=== PATIENT | female | born 1940 | race Caucasian/White ===

== ENCOUNTER 2017-08-11 10:25 | Emergency (ER) | payer MEDICARE ==
[~2017-08-11] VITALS: Ht 175.3 cm; Wt 54.9 kg
[~2017-08-11 10:25] MED LIST: ASPI-586 PO; CALC600T12 PO; GLUC1CAP37 PO; MULT1TAB69 PO; PANT40TA2 PO
--- OUTSIDE RECORDS SUMMARY | 2017-08-11 10:31 | XMS REPORT | Continuity of Care Document ---
Author Author [facility] Organization [facility] Address Unknown Phone Unavailable Allergies Active Description Code Type Severity Reaction Onset Reported/Identified Relationship to Patient Clinical Status Yes SULFA SULFA Unknown N/A 05/21/2011 Yes Sulfa (Sulfonamide Antibiotics) [id number] Drug Allergy Unknown RASH 2015 Medications There is no data. Problems Date Dx Coded Attending Type Code Diagnosis Diagnosed By 06/16/2014 AMBROCIO SALAZAR Ot V76.12 03/31/2015 STACEY MULLINS MD Ot 272.4 03/31/2015 STACEY MULLINS MD Ot 401.9 03/31/2015 STACEY MULLINS MD Ot 714.0 03/31/2015 STACEY MULLINS MD Ot 780.2 04/11/2015 STACEY MULLINS MD Ot 272.4 04/11/2015 STACEY MULLINS MD Ot 401.9 04/11/2015 STACEY MULLINS MD Ot 714.0 04/11/2015 STACEY MULLINS MD Ot 780.2 05/15/2015 STACEY MULLINS MD Ot 272.4 05/15/2015 STACEY MULLINS MD Ot 401.9 05/15/2015 STACEY MULLINS MD Ot 714.0 05/15/2015 STACEY MULLINS MD Ot 780.2 03/12/2016 ROSI REY MD Ot D64.9 ANEMIA, UNSPECIFIED 03/12/2016 ROSI REY MD Ot Z01.818 ENCOUNTER FOR OTHER PREPROCEDURAL EXAMIN 03/12/2016 ROSI REY MD Ot Z12.11 ENCOUNTER FOR SCREENING FOR MALIGNANT NE 03/12/2016 ROSI REY MD Ot Z86.010 PERSONAL HISTORY OF COLONIC POLYPS 03/15/2016 ROSI REY MD Ot D64.9 ANEMIA, UNSPECIFIED 03/15/2016 KIDO MD, TAKAAKI Ot K21.0 GASTRO-ESOPHAGEAL REFLUX DISEASE WITH ES 03/15/2016 ROSI REY MD Ot K29.70 GASTRITIS, UNSPECIFIED, WITHOUT BLEEDING 03/15/2016 ROSI REY MD Ot K44.9 DIAPHRAGMATIC HERNIA WITHOUT OBSTRUCTION 03/15/2016 ROSI REY MD Ot K64.1 SECOND DEGREE HEMORRHOIDS 03/15/2016 VIANEY REY MDKI Ot R19.5 OTHER FECAL ABNORMALITIES 03/15/2016 ROSI REY MD Ot Z86.010 PERSONAL HISTORY OF COLONIC POLYPS 03/18/2016 ROSI REY MD Ot D64.9 ANEMIA, UNSPECIFIED 03/18/2016 ROSI REY MD Ot K21.0 GASTRO-ESOPHAGEAL REFLUX DISEASE WITH ES 03/18/2016 ROSI REY MD Ot K29.70 GASTRITIS, UNSPECIFIED, WITHOUT BLEEDING 03/18/2016 ROSI REY MD Ot K44.9 DIAPHRAGMATIC HERNIA WITHOUT OBSTRUCTION 03/18/2016 ROSI REY MD Ot K64.1 SECOND DEGREE HEMORRHOIDS 03/18/2016 ROSI REY MD Ot R19.5 OTHER FECAL ABNORMALITIES 03/18/2016 VIANEY REY MDKI Ot Z86.010 PERSONAL HISTORY OF COLONIC POLYPS 03/18/2016 ROSI REY MD Ot D64.9 ANEMIA, UNSPECIFIED 03/18/2016 ROSI REY MD Ot K21.0 GASTRO-ESOPHAGEAL REFLUX DISEASE WITH ES 03/18/2016 ROSI REY MD Ot K29.70 GASTRITIS, UNSPECIFIED, WITHOUT BLEEDING 03/18/2016 ROSI REY MD Ot K44.9 DIAPHRAGMATIC HERNIA WITHOUT OBSTRUCTION 03/18/2016 ROSI REY MD Ot K64.1 SECOND DEGREE HEMORRHOIDS 03/18/2016 VIANEY REY MDKI Ot R19.5 OTHER FECAL ABNORMALITIES 03/18/2016 VIANEY REY MDKI Ot Z86.010 PERSONAL HISTORY OF COLONIC POLYPS 03/19/2016 ROSI REY MD Ot D64.9 ANEMIA, UNSPECIFIED 03/19/2016 ROSI REY MD Ot K21.0 GASTRO-ESOPHAGEAL REFLUX DISEASE WITH ES 03/19/2016 ROSI REY MD Ot K29.70 GASTRITIS, UNSPECIFIED, WITHOUT BLEEDING 03/19/2016 ROSI REY MD Ot K44.9 DIAPHRAGMATIC HERNIA WITHOUT OBSTRUCTION 03/19/2016 ROSI REY MD Ot K64.1 SECOND DEGREE HEMORRHOIDS 03/19/2016 ROSI REY MD Ot R19.5 OTHER FECAL ABNORMALITIES 03/19/2016 ROSI REY MD Ot Z86.010 PERSONAL HISTORY OF COLONIC POLYPS 03/22/2016 ROSI REY MD Ot D64.9 ANEMIA, UNSPECIFIED 03/22/2016 ROSI REY MD Ot K21.0 GASTRO-ESOPHAGEAL REFLUX DISEASE WITH ES 03/22/2016 ROSI REY MD Ot K29.70 GASTRITIS, UNSPECIFIED, WITHOUT BLEEDING 03/22/2016 ROSI REY MD Ot K44.9 DIAPHRAGMATIC HERNIA WITHOUT OBSTRUCTION 03/22/2016 ROSI REY MD Ot K64.1 SECOND DEGREE HEMORRHOIDS 03/22/2016 ROSI REY MD Ot R19.5 OTHER FECAL ABNORMALITIES 03/22/2016 ROSI REY MD Ot Z86.010 PERSONAL HISTORY OF COLONIC POLYPS Procedures There is no data. Results There is no data. Encounters ACCT No. Visit Date/Time Discharge Status Pt. Type Provider Facility Loc./Unit Complaint [id number] 03/15/2016 09:34:00 03/15/2016 12:35:00 DIS Outpatient ROSI REY MD [facility] HX POLPYS [id number] 03/11/2016 05:50:00 03/11/2016 12:32:00 DIS Outpatient ROSI REY MD [facility] PREOP [id number] 04/24/2015 08:34:00 04/24/2015 23:59:59 CLS Outpatient STACEY MULLINS MD [facility] CARD [id number] 03/28/2015 14:08:00 03/28/2015 23:59:59 CLS Outpatient STACEY MULLINS MD [facility] CARD [id number] 06/02/2014 10:23:00 06/02/2014 23:59:59 CLS Outpatient AMBROCIO SALAZAR [facility] RAD [id number] 02/10/2013 12:20:00 02/10/2013 23:59:59 CLS Outpatient
[2017-08-11] MEDS ORDERED: NS IV 500 ML 500 ML IV SCH (10:45)
--- NOTE | 2017-08-11 10:47 | ED Syncope ---
General Chief Complaint: Dizziness/Syncope Stated Complaint: SYNCOPE Source of Information: Patient Exam Limitations: No Limitations History of Present Illness Time Seen by Provider: 10:45 Initial Comments Patient is a resident of [facility] due to dementia. This morning after getting out of the shower she felt dizzy. She went and sat in her chair and briefly lost consciousness. Caregiver did a precordial thump and the patient awakened shortly thereafter. She is back to normal now states she feels fine. She denies currently or any past history of chest pain, palpitations or shortness of breath. Timing/Prior Episodes: No Prior History Symptoms Prior to Episode: None Allergies and Home Medications Allergies Coded Allergies: Sulfa (Sulfonamide Antibiotics) (Verified Allergy, Unknown, RASH, 03/11/16) Home Medications Aspirin 81 Mg Tablet.dr, 81 MG PO DAILY, (Reported) Calcium Carbonate 600 Mg Tablet, 600 MG PO DAILY, (Reported) Glucosa Vora 2Kcl/Chondroitin Vora 1 Each Capsule, 1 EACH PO DAILY, (Reported) Multivitamin 1 Each Tablet, 1 EACH PO DAILY, (Reported) Pantoprazole Sodium 40 Mg Tablet.dr, 40 MG PO DAILY, #90 Prescribed by: ROSI REY on 03/15/16 1153 Constitutional: see HPI EENTM: see HPI Respiratory: no symptoms reported Cardiovascular: no symptoms reported Genitourinary: no symptoms reported Musculoskeletal: no symptoms reported Skin: no symptoms reported Psychiatric/Neurological: No Symptoms Reported Physical Exam Vital Signs Vital Sign - Last 12Hours 08/11/17 10:25 Temp 97.9 Pulse 65 Resp 18 B/P (MAP) 100/77 (85) Capillary Refill : General Appearance: No Apparent Distress, WD/WN HEENT: PERRL/EOMI, TMs Normal Neck: Full Range of Motion, Normal Inspection Respiratory: Normal Breath Sounds, No Accessory Muscle Use, No Respiratory Distress Gastrointestinal: Non Tender, Soft Extremities: Normal Capillary Refill, Normal Inspection Neurologic/Psychiatric: Alert, No Motor/Sensory Deficits, Other (she is alert but states that she feels fine aside from just being tired. She is disoriented to time but oriented to place) Cranial Nerves: Normal Hearing, Normal Speech, PERRL Motor/Sensory: No Motor Deficit, No Sensory Deficit Skin: Normal Color, Warm/Dry Progress/Results/Core Measures Results/Orders Lab Results Laboratory Tests Test 08/11/17 10:42 08/11/17 12:55 Range/Units White Blood Count 4.9 4.3-11.0 10^3/uL Red Blood Count 3.63 L 4.35-5.85 10^6/uL Hemoglobin 11.2 L 11.5-16.0 G/DL Hematocrit 36 35-52 % Mean Corpuscular Volume 99 80-99 FL Mean Corpuscular Hemoglobin 31 25-34 PG Mean Corpuscular Hemoglobin Concent 31 L 32-36 G/DL Red Cell Distribution Width 14.7 H 10.0-14.5 % Platelet Count 193 130-400 10^3/uL Mean Platelet Volume 11.4 H 7.4-10.4 FL Neutrophils (%) (Auto) 57 42-75 % Lymphocytes (%) (Auto) 32 12-44 % Monocytes (%) (Auto) 9 0-12 % Eosinophils (%) (Auto) 1 0-10 % Basophils (%) (Auto) 0 0-10 % Neutrophils # (Auto) 2.8 1.8-7.8 X 10^3 Lymphocytes # (Auto) 1.6 1.0-4.0 X 10^3 Monocytes # (Auto) 0.5 0.0-1.0 X 10^3 Eosinophils # (Auto) 0.1 0.0-0.3 10^3/uL Basophils # (Auto) 0.0 0.0-0.1 10^3/uL Sodium Level 141 135-145 MMOL/L Potassium Level 3.5 L 3.6-5.0 MMOL/L Chloride Level 104 98-107 MMOL/L Carbon Dioxide Level 27 21-32 MMOL/L Anion Gap 10 5-14 MMOL/L Blood Urea Nitrogen 19 H 7-18 MG/DL Creatinine 1.13 0.60-1.30 MG/DL Estimat Glomerular Filtration Rate 47 BUN/Creatinine Ratio 17 Glucose Level 137 H 70-105 MG/DL Calcium Level 9.4 8.5-10.1 MG/DL Total Bilirubin 0.5 0.1-1.0 MG/DL Aspartate Amino Transf (AST/SGOT) 26 5-34 U/L Alanine Aminotransferase (ALT/SGPT) 16 0-55 U/L Alkaline Phosphatase 71 40-136 U/L Total Protein 7.2 6.4-8.2 GM/DL Albumin 3.9 3.2-4.5 GM/DL Urine Color YELLOW Urine Clarity SLIGHTLY CLOUDY Urine pH 7 5-9 Urine Specific [place] 1.010 L 1.016-1.022 Urine Protein 2+ H NEGATIVE Urine Glucose (UA) NEGATIVE NEGATIVE Urine Ketones NEGATIVE NEGATIVE Urine Nitrite NEGATIVE NEGATIVE Urine Bilirubin NEGATIVE NEGATIVE Urine Urobilinogen NORMAL NORMAL MG/DL Urine Leukocyte Esterase 3+ H NEGATIVE Urine RBC (Auto) 2+ H NEGATIVE Urine RBC 0-2 /HPF Urine WBC 50-100 H /HPF Urine Squamous Epithelial Cells 0-2 /HPF Urine Crystals NONE /LPF Urine Bacteria FEW H /HPF Urine Casts PRESENT /LPF Urine Hyaline Casts 25-50 H /LPF Urine Mucus MODERATE H /LPF Urine Culture Indicated YES My Orders Orders - KRISTIE GOEL APRN Cbc With Automated Diff (08/11/17 10:42) Comprehensive Metabolic Panel (08/11/17 10:42) Ua Culture If Indicated (08/11/17 10:42) Chest 1 View, Ap/Pa Only (08/11/17 10:42) Ekg Tracing (08/11/17 10:42) Ns Iv 500 Ml (Sodium Chloride 0.9%) (08/11/17 10:45) General/Regular (08/11/17 Lunch) Urine Culture (08/11/17 12:55) Vital Signs/I&O Vital Sign - Last 12Hours 08/11/17 10:25 Temp 97.9 Pulse 65 Resp 18 B/P (MAP) 100/77 (85) Departure Impression Impression: Primary Impression: Syncope Additional Impression: Urinary tract infection Disposition: 01 HOME, SELF-CARE Condition: Stable Departure-Patient Inst. Decision time for Depature: 13:26 Referrals: SHEELA KOO MD (PCP/Family) Primary Care Physician Patient Instructions: Syncope (Fainting) (DC), Urinary Tract Infection, Adult ( DC) Add. Discharge Instructions: 1. Antibiotics as directed 2. Follow-up with her doctor this week for recheck All discharge instructions reviewed with patient and/or family. Voiced understanding. Scripts Cefuroxime Axetil (Cefuroxime) 250 Mg Tablet 250 MG PO BID, #10 TAB Prov: KRISTIE GOEL APRN 08/11/17 KRISTIE GOEL APRN Aug 11, 2017 10:47
[2017-08-11 10:54] LABS: HEMATOCRIT 36 % (35-52); HEMOGLOBIN 11.2 G/DL (11.5-16.0); MEAN CORPUSCULAR HEMOGLOBIN 31 PG (25-34); MEAN CORPUSCULAR HGB CONC 31 G/DL (32-36); MEAN CORPUSCULAR VOLUME 99 FL (80-99); RED BLOOD COUNT 3.63 10^6/uL (4.35-5.85); RED CELL DISTRIBUTION WIDTH 14.7 % (10.0-14.5); WHITE BLOOD COUNT 4.9 10^3/uL (4.3-11.0)
[2017-08-11 10:55] LABS: BASOPHILS % (AUTO) 0 % (0-10); EOSINOPHILS # (AUTO) 0.1 10^3/uL (0.0-0.3); EOSINOPHILS % (AUTO) 1 % (0-10); LYMPHOCYTES # (AUTO) 1.6 X 10^3 (1.0-4.0); LYMPHOCYTES % (AUTO) 32 % (12-44); MEAN PLATELET VOLUME 11.4 FL (7.4-10.4); MONOCYTES # (AUTO) 0.5 X 10^3 (0.0-1.0); MONOCYTES % (AUTO) 9 % (0-12); NEUTROPHILS # (AUTO) 2.8 X 10^3 (1.8-7.8); NEUTROPHILS % (AUTO) 57 % (42-75); PLATELET COUNT 193 10^3/uL (130-400)
[2017-08-11 11:10] LABS: ALBUMIN 3.9 GM/DL (3.2-4.5); BILIRUBIN,TOTAL 0.5 MG/DL (0.1-1.0); CALCIUM 9.4 MG/DL (8.5-10.1); CREATININE SERUM 1.13 MG/DL (0.60-1.30); POTASSIUM 3.5 MMOL/L (3.6-5.0); TOTAL PROTEIN 7.2 GM/DL (6.4-8.2)
--- NOTE | 2017-08-11 11:37 | Diagnostic Imaging Report ---
INDICATION: Syncope and dizziness. FINDINGS: The heart size, mediastinal configuration, and pulmonary vascularity are within normal limits. There is no pleural effusion, pneumothorax, or pneumonia. The osseous structures are unremarkable. IMPRESSION: No acute cardiopulmonary abnormality. Dictated by: Dictated on workstation # [id number]
[2017-08-11 13:05] LABS: BILIRUBIN,URINE NEGATIVE (NEGATIVE); CLARITY,URINE SLIGHTLY CLOUDY; COLOR,URINE YELLOW; GLUCOSE, URINE (UA) NEGATIVE (NEGATIVE); KETONES,URINE NEGATIVE (NEGATIVE); LEUKOCYTE ESTERASE ,URINE 3+ (NEGATIVE); NITRITE,URINE NEGATIVE (NEGATIVE); PH,URINE 7 (5-9); PROTEIN,URINE 2+ (NEGATIVE); UROBILINOGEN,URINE NORMAL (NORMAL)
[2017-08-11 13:20] LABS: BACTERIA,URINE FEW /HPF; HYALINE CASTS, URINE 25-50 /LPF; RBC,URINE 0-2 /HPF; SQUAMOUS EPITHELIAL CELL,UR 0-2 /HPF; WBC,URINE 50-100 /HPF
[2017-08-11] MEDS ORDERED: CEFU250T80 PO (13:27)
[2017-08-11] MEDS ORDERED: CEFDINIR 300 MG (OMNICEF) CAP PO ONE (13:30)
[2017-08-11 13:45] VITALS: BP 115/56
== END 2017-08-11 14:02 | disposition home or self-care (01) ==
LOC: EDUNIT# 10:25 → ER 10:26
DX: N39.0 Urinary tract infection, site not specified (principal); R55 Syncope and collapse; Z79.82 Long term (current) use of aspirin
CPT/HCPCS: 36415; 71045; 80053; 81000; 85025; 87088; 93005; 96360

== ENCOUNTER 2019-07-27 08:03 | Emergency (ER) | payer MEDICARE ==
[~2019-07-27] VITALS: Ht 175.2 cm; Wt 75.0 kg
[~2019-07-27 08:03] MED LIST changes: +CEFU250T80 PO
[2019-07-27] MEDS ORDERED: NS IV 1000 ML 1,000 ML IV ONE (08:11)
[2019-07-27 08:26] LABS: BASOPHILS % (AUTO) 0 % (0-10); EOSINOPHILS # (AUTO) 0.1 10^3/uL (0.0-0.3); EOSINOPHILS % (AUTO) 1 % (0-10); HEMATOCRIT 35 % (35-52); HEMOGLOBIN 11.3 G/DL (11.5-16.0); LYMPHOCYTES # (AUTO) 1.1 X 10^3 (1.0-4.0); LYMPHOCYTES % (AUTO) 19 % (12-44); MEAN CORPUSCULAR HEMOGLOBIN 30 PG (25-34); MEAN CORPUSCULAR HGB CONC 32 G/DL (32-36); MEAN CORPUSCULAR VOLUME 94 FL (80-99); MEAN PLATELET VOLUME 10.9 FL (7.4-10.4); MONOCYTES # (AUTO) 0.5 X 10^3 (0.0-1.0); MONOCYTES % (AUTO) 8 % (0-12); NEUTROPHILS % (AUTO) 71 % (42-75); PLATELET COUNT 219 10^3/uL (130-400); RED CELL DISTRIBUTION WIDTH 14.7 % (10.0-14.5); WHITE BLOOD COUNT 5.6 10^3/uL (4.3-11.0)
[2019-07-27 08:31] LABS: BILIRUBIN,URINE NEGATIVE (NEGATIVE); CLARITY,URINE CLEAR; COLOR,URINE YELLOW; GLUCOSE, URINE (UA) NEGATIVE (NEGATIVE); KETONES,URINE NEGATIVE (NEGATIVE); LEUKOCYTE ESTERASE ,URINE NEGATIVE (NEGATIVE); NITRITE,URINE NEGATIVE (NEGATIVE); PH,URINE 7.5 (5-9); PROTEIN,URINE NEGATIVE (NEGATIVE)
[2019-07-27 08:42] LABS: BACTERIA,URINE NEGATIVE /HPF; RBC,URINE 0-2 /HPF
[2019-07-27 08:47] LABS: ALBUMIN 3.9 GM/DL (3.2-4.5); BILIRUBIN,TOTAL 0.4 MG/DL (0.1-1.0); CALCIUM 9.2 MG/DL (8.5-10.1); CREATININE SERUM 0.93 MG/DL (0.60-1.30); MAGNESIUM 2.1 MG/DL (1.6-2.4); POTASSIUM 3.8 MMOL/L (3.6-5.0); TOTAL PROTEIN 7.2 GM/DL (6.4-8.2)
--- NOTE | 2019-07-27 09:19 | NUR ---
TO ROOM FLUIDS CON'T TO INFUSE.
[2019-07-27 09:20] VITALS: BP 130/68
--- NOTE | 2019-07-27 09:37 | ED Fall/Injury ---
General Chief Complaint: Dizziness/Syncope Stated Complaint: FALL Nursing Triage Note: TO ED PER EMS FROM [facility]. WAS FOUND ON FLOOR SYSTOLIC B/P WAS IN THE 90'S ON ADMIT NO C/O Source: patient, EMS, [facility] records, caregiver Exam Limitations: no limitations History of Present Illness Date Seen by Provider: Jul 27, 2019 Time Seen by Provider: 08:00 Initial Comments This pleasant 79-year-old woman with dementia is a resident of [facility] and presents to the emergency room via EMS after being found on the floor. Staff state they've heard her yelling "help" and then found her lying flat on her back in the hallway. She is normally independently ambulatory. Staff report that she felt clammy on her arms and hands. She was pale in appearance and seemed to be nauseated or gagging. Blood pressure was 99/59 at the time. They also reported a pulse ox of 78 percent on room air. Oxygen saturation was in the 90s for EMS on room air. There was no loss of consciousness. Neither staff nor patient report any injury or pain. No injury is evident on exam. Patient has been exhibiting some more unusual behaviors recently. Urinalysis a couple of weeks ago was reportedly unremarkable. Allergies and Home Medications Allergies Coded Allergies: Sulfa (Sulfonamide Antibiotics) (Verified Allergy, Unknown, RASH, 03/11/16) Home Medications Aspirin 81 Mg Tablet., 81 MG PO DAILY, (Reported) Calcium Carbonate 600 Mg Tablet, 600 MG PO DAILY, (Reported) Cefuroxime Axetil 250 Mg Tablet, 250 MG PO BID Prescribed by: KRISTIE GOEL on 08/11/17 1327 Glucosa Vora 2Kcl/Chondroitin Vora 1 Each Capsule, 1 EACH PO DAILY, (Reported) Multivitamin 1 Each Tablet, 1 EACH PO DAILY, (Reported) Pantoprazole Sodium 40 Mg Tablet., 40 MG PO DAILY Prescribed by: ROSI REY on 03/15/16 1153 Patient Home Medication List Home Medication List Reviewed: Yes Review of Systems Review of Systems Constitutional: no symptoms reported Eyes: No Symptoms Reported Ears, Nose, Mouth, Throat: no symptoms reported Respiratory: no symptoms reported Cardiovascular: no symptoms reported Gastrointestinal: no symptoms reported Genitourinary: see HPI : No Musculoskeletal: no symptoms reported Skin: no symptoms reported Psychiatric/Neurological: See HPI Past Iiipkdo-Ezwchd-Oyxobx Hx Patient Social History Alcohol Use: Denies Use Recreational Drug Use: No Smoking Status: Never a Smoker Recent Foreign Travel: No Contact w/Someone Who Travel: No Recent Infectious Disease Expo: No Past Medical History Surgeries: Yes Respiratory: No Cardiac: Yes Syncope Neurological: No : No Reproductive Disorders: No Genitourinary: No Gastrointestinal: Yes Polyps Musculoskeletal: No Endocrine: No Cancer: No Psychosocial: No Integumentary: No Physical Exam Vital Signs Vital Signs - First Documented 07/27/19 08:03 Temp 36.3 Pulse 67 Resp 18 B/P (MAP) 96/57 (70) Pulse Ox 100 O2 Delivery Room Air Capillary Refill : Less Than 3 Seconds Height, Weight, BMI Height: 5'9.00" Weight: 121lbs. 0.0oz. 54.692038cg; 24.00 BMI Method:Estimated General Appearance: WD/WN, no apparent distress HEENT: PERRL/EOMI, normal ENT inspection, pharynx normal Neck: non-tender, normal inspection Cardiovascular: regular rate, rhythm, no edema, no murmur Respiratory: lungs clear, normal breath sounds, no respiratory distress Gastrointestinal: normal bowel sounds, non tender, soft Extremities: normal inspection, no pedal edema Neurologic/Psychiatric: tube splicer II-XII nml as tested, no motor/sensory deficits, alert, normal mood/affect, oriented x 3 Skin: normal color, warm/dry [place] Coma Score Best Eye Response: (4) Open Spontaneously Best Verbal Response: (4) Confused Conversation (Baseline for her degree of dementia) Best Motor Response: (6) Obeys Commands Audrey Total: 15 Progress/Results/Core Measures Results/Orders Lab Results Laboratory Tests Test 07/27/19 08:17 07/27/19 08:25 Range/Units White Blood Count 5.6 4.3-11.0 10^3/uL Red Blood Count 3.76 L 4.35-5.85 10^6/uL Hemoglobin 11.3 L 11.5-16.0 G/DL Hematocrit 35 35-52 % Mean Corpuscular Volume 94 80-99 FL Mean Corpuscular Hemoglobin 30 25-34 PG Mean Corpuscular Hemoglobin Concent 32 32-36 G/DL Red Cell Distribution Width 14.7 H 10.0-14.5 % Platelet Count 219 130-400 10^3/uL Mean Platelet Volume 10.9 H 7.4-10.4 FL Neutrophils (%) (Auto) 71 42-75 % Lymphocytes (%) (Auto) 19 12-44 % Monocytes (%) (Auto) 8 0-12 % Eosinophils (%) (Auto) 1 0-10 % Basophils (%) (Auto) 0 0-10 % Neutrophils # (Auto) 4.0 1.8-7.8 X 10^3 Lymphocytes # (Auto) 1.1 1.0-4.0 X 10^3 Monocytes # (Auto) 0.5 0.0-1.0 X 10^3 Eosinophils # (Auto) 0.1 0.0-0.3 10^3/uL Basophils # (Auto) 0.0 0.0-0.1 10^3/uL Sodium Level 140 135-145 MMOL/L Potassium Level 3.8 3.6-5.0 MMOL/L Chloride Level 107 98-107 MMOL/L Carbon Dioxide Level 22 21-32 MMOL/L Anion Gap 11 5-14 MMOL/L Blood Urea Nitrogen 18 7-18 MG/DL Creatinine 0.93 0.60-1.30 MG/DL Estimat Glomerular Filtration Rate 58 BUN/Creatinine Ratio 19 Glucose Level 120 H 70-105 MG/DL Calcium Level 9.2 8.5-10.1 MG/DL Corrected Calcium 9.3 8.5-10.1 MG/DL Magnesium Level 2.1 1.6-2.4 MG/DL Total Bilirubin 0.4 0.1-1.0 MG/DL Aspartate Amino Transf (AST/SGOT) 25 5-34 U/L Alanine Aminotransferase (ALT/SGPT) 13 0-55 U/L Alkaline Phosphatase 86 40-136 U/L Total Protein 7.2 6.4-8.2 GM/DL Albumin 3.9 3.2-4.5 GM/DL Urine Color YELLOW Urine Clarity CLEAR Urine pH 7.5 5-9 Urine Specific [place] 1.010 L 1.016-1.022 Urine Protein NEGATIVE NEGATIVE Urine Glucose (UA) NEGATIVE NEGATIVE Urine Ketones NEGATIVE NEGATIVE Urine Nitrite NEGATIVE NEGATIVE Urine Bilirubin NEGATIVE NEGATIVE Urine Urobilinogen 0.2 < = 1.0 MG/DL Urine Leukocyte Esterase NEGATIVE NEGATIVE Urine RBC (Auto) TRACE-I NEGATIVE Urine RBC 0-2 /HPF Urine WBC NONE /HPF Urine Squamous Epithelial Cells NONE /HPF Urine Crystals NONE /LPF Urine Bacteria NEGATIVE /HPF Urine Casts NONE /LPF Urine Mucus NEGATIVE /LPF Urine Culture Indicated NO My Orders Orders - RODERICK GONZALEZ MD Cbc With Automated Diff (07/27/19 08:11) Comprehensive Metabolic Panel (07/27/19 08:11) Magnesium (07/27/19 08:11) Ua Culture If Indicated (07/27/19 08:11) Ed Iv/Invasive Line Start (07/27/19 08:11) Ns Iv 1000 Ml (Sodium Chloride 0.9%) (07/27/19 08:11) Ekg Tracing (07/27/19 08:22) Monitor-Rhythm Ecg Trace Only (07/27/19 08:22) Medications Given in ED Current Medications Medications Dose Ordered Sig/Cady Route Start Time Stop Time Status Last Admin Dose Admin Sodium Chloride 1,000 ml @ 0 mls/hr Q0M ONCE IV 07/27/19 08:11 07/27/19 08:14 DC 07/27/19 08:19 1,000 MLS/HR Vital Signs/I&O 07/27/19 07/27/19 07/27/19 08:03 09:20 10:24 Temp 36.3 Pulse 67 56 63 64 Resp 18 18 B/P (MAP) 96/57 (70) 130/68 (88) 135/77 (96) 143/77 (99) Pulse Ox 100 100 O2 Delivery Room Air Blood Pressure Mean: 88 Progress Progress Note : Time: 10:33 Progress Note Workup was unremarkable. Patient's orthostatic blood pressures were normal after IV fluids were infused. Patient was able to ambulate to the restroom without difficulty. She was discharged in the care of [facility] staff and her daughter. Departure Impression Primary Impression: Fall on same level Qualified Codes: W18.30XA - Fall on same level, unspecified, initial encounter Additional Impressions: Dementia Qualified Codes: F03.91 - Unspecified dementia with behavioral disturbance Hypovolemia Disposition: 01 HOME, SELF-CARE Condition: Improved Departure-Patient Inst. Decision time for Depature: 10:34 Referrals: SHEELA KOO MD (PCP/Family) Primary Care Physician Patient Instructions: Preventing Falls in the Older Adult Add. Discharge Instructions: Encourage plenty of clear liquids. Follow-up with your primary care provider next week. Return to care if there are any other urgent problems or concerns. All discharge instructions reviewed with patient and/or family. Voiced understanding. Copy Copies To 1: SHEELA KOO MD, JOSHUA T MD Jul 27, 2019 09:37
[2019-07-27 10:24] VITALS: BP_SYST 135; BP_SYST 143; BP_DIAS 77
--- NOTE | 2019-07-27 10:25 | NUR ---
UNABLE TO OBTAIN STANDING ORTHOSTATIC B/P DUE TO PATIENT DEMENTIA WILL NOT STAND STILL AND AND MOVING ARM. DR WILLIS
[2019-07-27 10:39] VITALS: BP 143/78
--- NOTE | 2019-07-27 10:39 | NUR ---
AMBULATED IN [place] WITHOUT PROBLEM BEFORE DISCHARGE.
== END 2019-07-27 10:42 | disposition home or self-care (01) ==
LOC: EDUNIT# 08:03 → ER 08:04
DX: Z04.3 Encounter for examination and observation following other accident (principal); F03.90 Unspecified dementia, unspecified severity, without behavioral disturbance, psychotic disturbance, mood disturbance, and anxiety; E86.1 Hypovolemia; R40.2142 Coma scale, eyes open, spontaneous, at arrival to emergency department; R40.2242 Coma scale, best verbal response, confused conversation, at arrival to emergency department; R40.2362 Coma scale, best motor response, obeys commands, at arrival to emergency department; Z88.2 Allergy status to sulfonamides; Z79.82 Long term (current) use of aspirin
CPT/HCPCS: 36415; 80053; 81000; 83735; 85025; 93041; 96360; 96361

== ENCOUNTER 2020-04-01 13:37 | Emergency (ER) | payer MEDICARE ==
[~2020-04-01] VITALS: Ht 167 cm; Wt 68.0 kg
[~2020-04-01 13:37] MED LIST changes: -CALC600T12 PO; +CALC600T14 PO; +MULT-567 PO; -MULT1TAB69 PO
--- NOTE | 2020-04-01 14:15 | ED Fall/Injury ---
General Chief Complaint: Trauma-Non Activation Stated Complaint: FALL Nursing Triage Note: PT FELL AT [place] Source: alf records, caregiver (Dementia ) Exam Limitations: physical impairment (Dementia ) History of Present Illness Date Seen by Provider: Apr 01, 2020 Time Seen by Provider: 13:50 Initial Comments Pat Umanzor is a 79 yo female with a history of dementia. [place] states she was sitting on the couch covered with a blanket when she independently stood and tripped over her blanket causing her to fall. Reports hematoma noted on the left side of head. Denies LOC, changes in behavior, shoulder, hip, back pain. No other injuries noted. Location Injury Occurred: [facility] Occurred: just prior to arrival Severity: mild Injuries/Pain Location: head Context: tripped Loss of Consciousness: no loss of consciousness Associated Symptoms (Fall): Other (Unable to assess due to dementia ) Allergies and Home Medications Allergies Coded Allergies: Sulfa (Sulfonamide Antibiotics) (Verified Allergy, Unknown, RASH, 03/11/16) Home Medications Aspirin 81 Mg Tablet.dr, 81 MG PO DAILY, (Reported) Calcium Carbonate 600 Mg Tablet, 600 MG PO DAILY, (Reported) Cefuroxime Axetil 250 Mg Tablet, 250 MG PO BID Prescribed by: KRISTIE GOEL on 08/11/17 1327 Glucosa Vora 2Kcl/Chondroitin Vora 1 Each Capsule, 1 EACH PO DAILY, (Reported) Multivitamin 1 Each Tablet, 1 EACH PO DAILY, (Reported) Pantoprazole Sodium 40 Mg Tablet.dr, 40 MG PO DAILY Prescribed by: ROSI REY on 03/15/16 1153 Patient Home Medication List Home Medication List Reviewed: Yes Review of Systems Review of Systems Constitutional: see HPI Eyes: See HPI Ears, Nose, Mouth, Throat: see HPI Respiratory: see HPI Cardiovascular: see HPI Gastrointestinal: see HPI Genitourinary: see HPI Musculoskeletal: see HPI Skin: see HPI Psychiatric/Neurological: Pre-Existing Deficit Past Qtiaxor-Gazpbb-Qlmnii Hx Patient Social History Alcohol Use: Denies Use Recreational Drug Use: No Smoking Status: Never a Smoker Recent Foreign Travel: No Contact w/Someone Who Travel: No Recent Infectious Disease Expo: No Recent Hopitalizations: No Physical Abuse: No Sexual Abuse: No Past Medical History Surgeries: Yes Respiratory: No Cardiac: Yes Syncope Neurological: No Reproductive Disorders: No Genitourinary: No Gastrointestinal: Yes Polyps Musculoskeletal: No Endocrine: No Cancer: No Psychosocial: No Integumentary: No Physical Exam Vital Signs Vital Signs - First Documented 04/01/20 13:38 Temp 36.5 Pulse 67 Resp 18 B/P (MAP) 138/64 (88) Pulse Ox 95 Capillary Refill : Less Than 3 Seconds Height, Weight, BMI Height: 5'9.00" Weight: 121lbs. 0.0oz. 54.323189ho; 24.00 BMI Method:Estimated General Appearance: WD/WN, no apparent distress HEENT: PERRL/EOMI, normal ENT inspection, TMs normal, pharynx normal Neck: supple, normal inspection Cardiovascular: normal peripheral pulses, regular rate, rhythm, no edema Respiratory: chest non-tender, lungs clear, normal breath sounds, no respiratory distress, no accessory muscle use Peripheral Pulses: 2+ Dorsalis Pedis (R), 2+ Left Dors-Pedis (L), 2+ Radial Pulses (R), 2+ Radial Pulses (L) Gastrointestinal: normal bowel sounds, non tender, soft Back: normal inspection, no vertebral tenderness Extremities: normal range of motion, non-tender, normal inspection, normal capillary refill Neurologic/Psychiatric: no motor/sensory deficits, disoriented x 3 Progress/Results/Core Measures Results/Orders My Orders Orders - DYLLAN URIOSTEGUI APRN Ct Head/Cervical Spine Wo (04/01/20 13:57) Pelvis/Jazmine Hips 5> Views (04/01/20 14:39) Vital Signs/I&O 04/01/20 04/01/20 13:38 16:29 Temp 36.5 36.5 Pulse 67 67 Resp 18 18 B/P (MAP) 138/64 (88) 138/64 (88) Pulse Ox 95 95 Blood Pressure Mean: 88 Progress Progress Note #1: Progress Note Examination and ROS difficult to obtain d/t previous cognitive deficiency. CT head/neck without contrast ordered. During exam she withdrew from pain when assessing pelvis/hips. Ordered x-ray to evaluated pelvis and bilat. hips. Progress Note #2: Progress Note Radiographs reviewed and reports read. See report for full details. Diagnostic Imaging Diagonstic Imaging: CT Plain Films/CT/US/NM/MRI: c-spine, head Comments NAME: PAT UMANZOR [facility] REC#: [id number] PT STATUS: REG ER : 1940 PHYSICIAN: DYLLAN URIOSTEGUI MACHINE MOLDER SQUEEZE ADMIT DATE: 04/01/20/ER Draft Date of Exam:04/01/20 CT HEAD/CERVICAL SPINE WO PROCEDURE: CT head and CT cervical spine without contrast. TECHNIQUE: Multiple contiguous axial images were obtained through the brain and cervical spine without the use of intravenous contrast. Sagittal and coronal reformations through the cervical spine were then performed. Auto Exposure Controls were utilized during the CT exam to meet ALARA standards for radiation dose reduction. INDICATION: Fall. COMPARISON: None. FINDINGS: CT HEAD: Advanced generalized cerebral and cerebellar parenchymal volume loss. Moderate leukoaraiosis. No intracranial hemorrhage, mass effect, hydrocephalus or extra-axial fluid collections. No CT evidence of a territorial infarction. Osseous structures are intact. The paranasal sinuses and mastoids are clear. CT CERVICAL SPINE: Normal alignment. Vertebral body heights are preserved. No fractures. Moderate diffuse degenerative endplate changes. No high-grade spinal canal stenosis is evident on soft tissue windows. Indeterminate nodule in the left thyroid measures up to 1.1 cm. Mild atherosclerotic calcifications. The lung apices are clear. IMPRESSION: 1. No acute intracranial or cervical spine CT findings. 2. Indeterminant nodule in the left thyroid. Recommend nonemergent followup with dedicated ultrasound. Dictated on workstation # [id number] Dict: 04/01/20 1452 Trans: 04/01/20 1500 [facility] [id number] Interpreted by: MARJ SCHOFIELD MD Electronically signed by: Diagonstic Imaging: Xray Plain Films/CT/US/NM/MRI: pelvis, hip Comments NAME: PAT UMANZOR Heather [facility] REC#: [id number] PT STATUS: DEP ER : 1940 PHYSICIAN: DYLLAN URIOSTEGUI MACHINE MOLDER SQUEEZE ADMIT DATE: 04/01/20/ER Signed Date of Exam:04/01/20 PELVIS/JAZMINE HIPS 5> VIEWS EXAM: Pelvis/jazmine hips 5> views INDICATION: Fall. COMPARISON: None. FINDINGS: No fracture or malalignment is identified. No suspicious osteoblastic or lytic lesion. Vascular calcifications. Moderate degenerative and spondylotic changes in the visualized lower lumbar spine. IMPRESSION: No acute radiographic finding in the pelvis. The proximal femurs appear intact. Dictated by: Dictated on workstation # [id number] Dict: 04/01/20 1600 Trans: 04/01/201706 [facility] [id number] Interpreted by: MARJ SCHOFIELD MD Electronically signed by: MARJ SCHOFIELD MD 04/01/201706 Departure Impression Primary Impression: Fall Disposition: 01 HOME, SELF-CARE Condition: Stable Departure-Patient Inst. Referrals: SHEELA KOO MD (PCP/Family) Primary Care Physician Add. Discharge Instructions: Plan: 1. Discharge back to nursing facility. 2. May take Tylenol as needed for pain per package insert. 3. Reduce fall hazards and clear walking paths. Ambulate with assistance. 4. Return for any new or concerning symptoms. All discharge instructions reviewed with patient and/or family. Voiced understanding. Copy Copies To 1: SHEELA KOO MD, STORMY D MACHINE MOLDER SQUEEZE Apr 01, 2020 14:15
--- NOTE | 2020-04-01 15:01 | Diagnostic Imaging Report ---
PROCEDURE: CT head and CT cervical spine without contrast. TECHNIQUE: Multiple contiguous axial images were obtained through the brain and cervical spine without the use of intravenous contrast. Sagittal and coronal reformations through the cervical spine were then performed. Auto Exposure Controls were utilized during the CT exam to meet ALARA standards for radiation dose reduction. INDICATION: Fall. COMPARISON: None. FINDINGS: CT HEAD: Advanced generalized cerebral and cerebellar parenchymal volume loss. Moderate leukoaraiosis. No intracranial hemorrhage, mass effect, hydrocephalus or extra-axial fluid collections. No CT evidence of a territorial infarction. Osseous structures are intact. The paranasal sinuses and mastoids are clear. CT CERVICAL SPINE: Normal alignment. Vertebral body heights are preserved. No fractures. Moderate diffuse degenerative endplate changes. No high-grade spinal canal stenosis is evident on soft tissue windows. Indeterminate nodule in the left thyroid measures up to 1.1 cm. Mild atherosclerotic calcifications. The lung apices are clear. IMPRESSION: 1. No acute intracranial or cervical spine CT findings. 2. Indeterminant nodule in the left thyroid. Recommend nonemergent followup with dedicated ultrasound. Dictated by: Dictated on workstation # [id number]
--- NOTE | 2020-04-01 15:18 | NUR ---
C-COLLAR REMOVED BY An STEVENSON
--- NOTE | 2020-04-01 16:06 | Diagnostic Imaging Report ---
EXAM: Pelvis/layne hips 5> views INDICATION: Fall. COMPARISON: None. FINDINGS: No fracture or malalignment is identified. No suspicious osteoblastic or lytic lesion. Vascular calcifications. Moderate degenerative and spondylotic changes in the visualized lower lumbar spine. IMPRESSION: No acute radiographic finding in the pelvis. The proximal femurs appear intact. Dictated by: Dictated on workstation # [id number]
[2020-04-01 16:29] VITALS: BP 138/64
== END 2020-04-01 16:33 | disposition home or self-care (01) ==
LOC: EDUNIT# 13:37 → ER 13:38
DX: S00.93XA Contusion of unspecified part of head, initial encounter (principal); Z88.2 Allergy status to sulfonamides; Z79.82 Long term (current) use of aspirin; W01.0XXA Fall on same level from slipping, tripping and stumbling without subsequent striking against object, initial encounter
CPT/HCPCS: 70450; 72125; 73523

== ENCOUNTER 2020-04-26 12:26 | Emergency (ER) | payer MEDICARE ==
[~2020-04-26] VITALS: Ht 157.2 cm; Wt 59.0 kg
[~2020-04-26 12:26] MED LIST changes: -CALC600T14 PO; +CLC600T PO
--- NOTE | 2020-04-26 12:43 | ED Fall/Injury ---
General Stated Complaint: FALL History of Present Illness Date Seen by Provider: Apr 26, 2020 Time Seen by Provider: 12:37 Initial Comments Patient arrives by EMS with reports of patient being found on the floor of her room at the care home. There was not a report of a witnessed fall. Patient has known dementia and is mumbling in the room. Staff reports no change from baseline. Patient denies pain and does not wince or guard when head, neck, and pelvis are palpated and manipulated. Patient is not on a daily blood thinner. Occurred: just prior to arrival Severity: mild Injuries/Pain Location: no injury Context: unknown Loss of Consciousness: unsure Associated Symptoms (Fall): Denies Symptoms (Patient has a known diagnosis of dementia) Allergies and Home Medications Allergies Coded Allergies: Sulfa (Sulfonamide Antibiotics) (Verified Allergy, Unknown, RASH, 03/11/16) Home Medications Aspirin 81 Mg Tablet., 81 MG PO DAILY, (Reported) Calcium Carbonate 600 Mg Tablet, 600 MG PO DAILY, (Reported) Cefuroxime Axetil 250 Mg Tablet, 250 MG PO BID Prescribed by: KRISTIE GOEL on 08/11/17 1327 Glucosa Vora 2Kcl/Chondroitin Vora 1 Each Capsule, 1 EACH PO DAILY, (Reported) Multivitamin 1 Each Tablet, 1 EACH PO DAILY, (Reported) Pantoprazole Sodium 40 Mg Tablet., 40 MG PO DAILY Prescribed by: ROSI REY on 03/15/16 1153 Patient Home Medication List Home Medication List Reviewed: Yes Review of Systems Review of Systems Constitutional: no symptoms reported, see HPI (Patient has dementia and does not acknowledge conversation) Eyes: No Symptoms Reported, See HPI Ears, Nose, Mouth, Throat: no symptoms reported, see HPI Respiratory: no symptoms reported, see HPI Cardiovascular: no symptoms reported, see HPI Gastrointestinal: no symptoms reported, see HPI Genitourinary: no symptoms reported, see HPI Musculoskeletal: no symptoms reported, see HPI; No joint pain, No joint swelling, No neck pain Skin: no symptoms reported, see HPI Psychiatric/Neurological: No Symptoms Reported All Other Systems Reviewed Negative Unless Noted: Yes Past Jigczwf-Pvzgbg-Shlpmh Hx Past Med/Social Hx: Reviewed Nursing Past Med/Soc Hx Patient Social History Recent Hopitalizations: No Past Medical History Surgeries: Yes Respiratory: No Cardiac: Yes Syncope Neurological: No Reproductive Disorders: No Genitourinary: No Gastrointestinal: Yes Polyps Musculoskeletal: No Endocrine: No Cancer: No Psychosocial: No Integumentary: No Physical Exam Vital Signs Vital Signs - First Documented 04/26/20 12:26 Temp 35.2 Pulse 86 Resp 18 B/P (MAP) 138/101 (113) Capillary Refill : Height, Weight, BMI Height: 5'9.00" Weight: 121lbs. 0.0oz. 54.807250wp; 24.00 BMI Method:Estimated General Appearance: WD/WN, no apparent distress, thin HEENT: PERRL/EOMI, normal ENT inspection Neck: non-tender, full range of motion, normal inspection Cardiovascular: normal peripheral pulses, regular rate, rhythm, no edema, no murmur Respiratory: lungs clear, normal breath sounds, no respiratory distress, no accessory muscle use Peripheral Pulses: 2+ Dorsalis Pedis (R), 2+ Left Dors-Pedis (L) Gastrointestinal: normal bowel sounds, non tender, soft Rectal: deferred Back: normal inspection, no vertebral tenderness Extremities: normal range of motion, non-tender, normal inspection, no pedal edema, normal capillary refill, pelvis stable, other (No pain with passive ROM to UEs or LEs. ) Neurologic/Psychiatric: alert (Patient has dementia and is currently oriented to self only, per EMS this is patient's baseline), normal mood/affect; No facial droop Skin: normal color, warm/dry; No diaphoresis, No ecchymosis Lymphatic: no adenopathy Audrey Coma Score Best Eye Response: (4) Open Spontaneously Best Verbal Response: (4) Confused Conversation Best Motor Response: (5) Localizes to Pain (Patient has a pre-existing diagnosis of dementia) Progress/Results/Core Measures Results/Orders My Orders Orders - JANAY GROVES Ct Head/Cervical Spine Wo (04/26/20 12:37) Vital Signs/I&O 04/26/20 12:26 Temp 35.2 Pulse 86 Resp 18 B/P (MAP) 138/101 (113) Progress Progress Note : Time: 12:40 Progress Note Patient seen and evaluated, will obtain CT and reevaluate. 1330 CT negative for acute findings. Patient has remained stable. No complaints of pain. Discharge instructions and return precautions reviewed. Notified staff at [facility]. They will provide transportation. Diagnostic Imaging Diagonstic Imaging: CT Plain Films/CT/US/NM/MRI: c-spine, head Comments NAME: NIDA FERNANDES [facility] REC#: [id number] PT STATUS: REG ER : 1940 PHYSICIAN: JANAY GROVES ADMIT DATE: 04/26/20/ER Draft Date of Exam:04/26/20 CT HEAD/CERVICAL SPINE WO PROCEDURE: CT head and CT cervical spine without contrast. TECHNIQUE: Multiple contiguous axial images were obtained through the brain and cervical spine without the use of intravenous contrast. Sagittal and coronal reformations through the cervical spine were then performed. Auto Exposure Controls were utilized during the CT exam to meet ALARA standards for radiation dose reduction. INDICATION: Found on the floor. COMPARISON: Comparison is made with recent CT from 04/01/2020. CT Head: FINDINGS: The ventricles and sulci are prominent consistent with cerebral atrophy. Periventricular hypodensity is noted consistent with chronic microvascular ischemia. There is no sulcal effacement or midline shift. No acute intra-axial or extra-axial hemorrhage is detected. Cisterns are patent. Visualized paranasal sinuses are clear. IMPRESSION: Chronic and senescent changes. No acute intracranial process is detected. CT Cervical Spine: FINDINGS: There is some straightening of the normal cervical lordotic curvature. Significant multilevel degenerative disc disease is noted with disc space narrowing and marginal spurring. No fractures are identified. Odontoid appears intact. Prevertebral tissues are normal. IMPRESSION: Cervical spondylosis. No acute bony abnormality is detected. Dictated on workstation # [id number] Dict: 04/26/20 1307 Trans: 04/26/20 1313 [id number] Interpreted by: ARIS BATISTA MD Electronically signed by: Reviewed: Reviewed by Me Departure Impression Primary Impression: Fall Qualified Codes: W19.XXXA - Unspecified fall, initial encounter Disposition: 01 HOME, SELF-CARE Condition: Improved Departure-Patient Inst. Decision time for Depature: 13:20 Referrals: SHEELA KOO MD (PCP/Family) Primary Care Physician Patient Instructions: Preventing Falls in the Older Adult Add. Discharge Instructions: Alternate between Tylenol 650 mg and ibuprofen 600 mg every 4 hours for headache or pain. Neurochecks every hour for the next 4 hours then every 4 hours for 8 hours. Notify primary care provider if any change from baseline. Precautions to prevent falls. Return to the emergency department for new, urgent health care needs. Copy Copies To 1: SHEELA KOO MD, AMY ARNP Apr 26, 2020 12:43
--- NOTE | 2020-04-26 13:13 | Diagnostic Imaging Report ---
PROCEDURE: CT head and CT cervical spine without contrast. TECHNIQUE: Multiple contiguous axial images were obtained through the brain and cervical spine without the use of intravenous contrast. Sagittal and coronal reformations through the cervical spine were then performed. Auto Exposure Controls were utilized during the CT exam to meet ALARA standards for radiation dose reduction. INDICATION: Found on the floor. COMPARISON: Comparison is made with recent CT from 04/01/2020. CT Head: FINDINGS: The ventricles and sulci are prominent consistent with cerebral atrophy. Periventricular hypodensity is noted consistent with chronic microvascular ischemia. There is no sulcal effacement or midline shift. No acute intra-axial or extra-axial hemorrhage is detected. Cisterns are patent. Visualized paranasal sinuses are clear. IMPRESSION: Chronic and senescent changes. No acute intracranial process is detected. CT Cervical Spine: FINDINGS: There is some straightening of the normal cervical lordotic curvature. Significant multilevel degenerative disc disease is noted with disc space narrowing and marginal spurring. No fractures are identified. Odontoid appears intact. Prevertebral tissues are normal. IMPRESSION: Cervical spondylosis. No acute bony abnormality is detected. Dictated by: Dictated on workstation # [id number]
[2020-04-26] MEDS ORDERED: HALOPERIDOL 5 MG (HALDOL) TAB PO ONE (13:15)
[2020-04-26] MEDS ORDERED: diphenhydrAMINE 25 MG TAB (BENADRYL) PO ONE (13:15)
[2020-04-26 15:12] VITALS: BP 125/97
== END 2020-04-26 15:12 | disposition home or self-care (01) ==
LOC: EDUNIT# 12:26 → ER 12:27
DX: Z04.3 Encounter for examination and observation following other accident (principal); R40.2142 Coma scale, eyes open, spontaneous, at arrival to emergency department; R40.2242 Coma scale, best verbal response, confused conversation, at arrival to emergency department; R40.2362 Coma scale, best motor response, obeys commands, at arrival to emergency department; Z88.2 Allergy status to sulfonamides; Z79.82 Long term (current) use of aspirin
CPT/HCPCS: 70450; 72125

== ENCOUNTER 2020-05-02 15:08 | Emergency (ER) | payer MEDICARE ==
[~2020-05-02] VITALS: Ht 162 cm; Wt 63.0 kg
[2020-05-02 15:08] VITALS: BP 126/71
--- NOTE | 2020-05-02 15:22 | ED Fall/Injury ---
General Chief Complaint: Trauma-Non Activation Stated Complaint: FALL History of Present Illness Date Seen by Provider: May 02, 2020 Time Seen by Provider: 15:02 Initial Comments 79 -year-old female presents via EMS for a fall from her kitchen chair which has wheels on it. It was witnessed by the staff at her [facility]. There was no loss of consciousness, nausea or vomiting, or seizure activity after the fall. She has a history of dementia and there is no change from baseline status. She is not taking anticoagulants. Occurred: just prior to arrival Injuries/Pain Location: head (hematoma left temporal) Loss of Consciousness: no loss of consciousness Associated Symptoms (Fall): Denies Symptoms Allergies and Home Medications Allergies Coded Allergies: Sulfa (Sulfonamide Antibiotics) (Verified Allergy, Unknown, RASH, 03/11/16) Home Medications Aspirin 81 Mg Tablet.dr, 81 MG PO DAILY, (Reported) Calcium Carbonate 600 Mg Tablet, 600 MG PO DAILY, (Reported) Cefuroxime Axetil 250 Mg Tablet, 250 MG PO BID Prescribed by: KRISTIE GOEL on 08/11/17 1327 Glucosa Vora 2Kcl/Chondroitin Vora 1 Each Capsule, 1 EACH PO DAILY, (Reported) Multivitamin 1 Each Tablet, 1 EACH PO DAILY, (Reported) Pantoprazole Sodium 40 Mg Tablet.dr, 40 MG PO DAILY Prescribed by: ROSI REY on 03/15/16 1153 Patient Home Medication List Home Medication List Reviewed: Yes Review of Systems Review of Systems Constitutional: no symptoms reported, see HPI Musculoskeletal: no symptoms reported, see HPI; No joint pain All Other Systems Reviewed Negative Unless Noted: Yes Past Njuzujr-Eggpko-Lolzxl Hx Past Med/Social Hx: Reviewed Nursing Past Med/Soc Hx Patient Social History Recent Hopitalizations: No Past Medical History Surgeries: Yes Respiratory: No Cardiac: Yes Syncope Neurological: No Reproductive Disorders: No Genitourinary: No Gastrointestinal: Yes Polyps Musculoskeletal: No Endocrine: No Cancer: No Psychosocial: No Integumentary: No Physical Exam Vital Signs Capillary Refill : Height, Weight, BMI Height: 5'9.00" Weight: 121lbs. 0.0oz. 54.524275tz; 23.00 BMI Method:Estimated General Appearance: WD/WN, no apparent distress HEENT: PERRL/EOMI, other (small hematomoa to left temporal region) Neck: non-tender, full range of motion, supple, normal inspection; No tender lateral, No tender midline Cardiovascular: normal peripheral pulses, regular rate, rhythm, no edema Respiratory: chest non-tender, lungs clear, normal breath sounds Gastrointestinal: normal bowel sounds, non tender, soft Extremities: normal range of motion (passive ROM doesn't cause pain, patient moves extremities. ), non-tender Neurologic/Psychiatric: no motor/sensory deficits, alert Skin: normal color, warm/dry; No ecchymosis Departure Impression Primary Impression: Fall Qualified Codes: W19.XXXA - Unspecified fall, initial encounter Additional Impression: Contusion Qualified Codes: S00.03XA - Contusion of scalp, initial encounter Disposition: HOME, SELF-CARE Condition: Improved Departure-Patient Inst. Decision time for Depature: 15:20 Referrals: SHEELA KOO MD (PCP/Family) Primary Care Physician Patient Instructions: Contusion (DC), Preventing Falls in the Older Adult Add. Discharge Instructions: You may give Tylenol 650 mg every 6 hours for headache or pain. Apply ice to left temporal region for 5-10 minutes every 2 hours. Monitor for any changes from baseline status and notify primary care provider if this occurs. Prevent falls and avoid chairs with wheels. Return to the emergency department for new, urgent health care needs. All discharge instructions reviewed with patient and/or family. Voiced understanding. Copy Copies To 1: SHEELA KOO MD, AMY ARNP May 02, 2020 15:22
--- NOTE | 2020-05-02 15:33 | NUR ---
JANAY HAS TALKED TO AURTHERINE ON THE PHONE AND SHE WAS NOTIFIED TO COME GET THE PT.
== END 2020-05-02 15:54 | disposition home or self-care (01) ==
LOC: EDUNIT# 15:08 → ER 15:09
DX: S00.83XA Contusion of other part of head, initial encounter (principal); Z88.2 Allergy status to sulfonamides; Z79.82 Long term (current) use of aspirin; W07.XXXA Fall from chair, initial encounter
CPT/HCPCS: 99283

== ENCOUNTER 2020-05-26 11:52 | Emergency (ER) | payer MEDICARE ==
[~2020-05-26] VITALS: Ht 167.7 cm; Wt 72.5 kg
--- NOTE | 2020-05-26 12:04 | ED Fall/Injury ---
General Stated Complaint: FALL, HEAD INJ Source: patient Exam Limitations: no limitations History of Present Illness Date Seen by Provider: May 26, 2020 Time Seen by Provider: 12:02 Initial Comments To ER from [facility] with reports of a fall. Staff was in the room with her, left briefly and returned to find her on the floor. Uncertain if she fell or just crawled and sat down on the floor. This was unwitnessed and she has dementia. They believe they saw a hematoma on her head so they called an ambulance. She is from [facility], a [place] [facility] [place] [facility] [place] [facility] here in [place]. There have been a couple of patient's there chest positive for COVID 19. They would like this patient to be swallowed while she is here th ough SHE DOES NOT HAVE ANY COVID 19 SYMPTOMS . Occurred: just prior to arrival Severity: mild Injuries/Pain Location: head Context: unknown Associated Symptoms (Fall): Denies Symptoms Allergies and Home Medications Allergies Coded Allergies: Sulfa (Sulfonamide Antibiotics) (Verified Allergy, Unknown, RASH, 03/11/16) Home Medications Aspirin 81 Mg Tablet.dr, 81 MG PO DAILY, (Reported) Calcium Carbonate 600 Mg Tablet, 600 MG PO DAILY, (Reported) Cefuroxime Axetil 250 Mg Tablet, 250 MG PO BID Prescribed by: KRISTIE GOEL on 08/11/17 1327 Glucosa Vora 2Kcl/Chondroitin Vora 1 Each Capsule, 1 EACH PO DAILY, (Reported) Multivitamin 1 Each Tablet, 1 EACH PO DAILY, (Reported) Pantoprazole Sodium 40 Mg Tablet.dr, 40 MG PO DAILY Prescribed by: ROSI REY on 03/15/16 1153 Patient Home Medication List Home Medication List Reviewed: Yes Review of Systems Review of Systems Constitutional: see HPI; No chills, No fever Eyes: No Symptoms Reported Ears, Nose, Mouth, Throat: no symptoms reported Respiratory: no symptoms reported; No cough Cardiovascular: no symptoms reported Genitourinary: no symptoms reported Musculoskeletal: no symptoms reported Skin: no symptoms reported Psychiatric/Neurological: No Symptoms Reported Past Hmgzisa-Vtveep-Amtfsa Hx Patient Social History Recent Hopitalizations: No Past Medical History Surgeries: Yes Respiratory: No Cardiac: Yes Syncope Neurological: No Reproductive Disorders: No Genitourinary: No Gastrointestinal: Yes Polyps Musculoskeletal: No Endocrine: No Cancer: No Psychosocial: No Integumentary: No Physical Exam Vital Signs Vital Signs - First Documented 05/26/20 11:55 Temp 36.0 Pulse 67 Resp 20 B/P (MAP) 133/94 (107) Pulse Ox 98 O2 Delivery Room Air Capillary Refill : Height, Weight, BMI Height: 5'9.00" Weight: 121lbs. 0.0oz. 54.485937pc; 24.00 BMI Method:Estimated General Appearance: WD/WN, no apparent distress, other (no scalp hematoma) HEENT: PERRL/EOMI, normal ENT inspection Neck: non-tender, full range of motion Respiratory: no respiratory distress, no accessory muscle use Neurologic/Psychiatric: alert, normal mood/affect, oriented x 3 Skin: normal color, warm/dry Audrey Coma Score Best Eye Response: (4) Open Spontaneously Best Verbal Response: (4) Confused Conversation Best Motor Response: (5) Localizes to Pain [place] Total: 13 Progress/Results/Core Measures Results/Orders My Orders Orders - KRISTIE GOEL APRN Ct Head/Cervical Spine Wo (05/26/20 11:59) Pelvis (05/26/20 11:59) Vital Signs/I&O 05/26/20 11:55 Temp 36.0 Pulse 67 Resp 20 B/P (MAP) 133/94 (107) Pulse Ox 98 O2 Delivery Room Air Departure Impression Primary Impression: Fall Qualified Codes: W19.XXXA - Unspecified fall, initial encounter Disposition: 01 HOME, SELF-CARE Condition: Stable Departure-Patient Inst. Decision time for Depature: 12:04 Referrals: SHEELA KOO MD (PCP/Family) Primary Care Physician Patient Instructions: Preventing Falls KRISTIE GOEL APRN May 26, 2020 12:04
--- NOTE | 2020-05-26 12:39 | Diagnostic Imaging Report ---
CLINICAL INDICATION: Patient found on floor. EXAM: X-ray of the pelvis AP view. COMPARISON: None. FINDINGS: There is no acute fracture or dislocation. There are no significant degenerative changes of the hip. Vascular calcifications are seen. Incompletely imaged left curvature lumbar spine. There is lower lumbar spine degenerative disease. There is mild sclerosis of the lower lumbar spine. IMPRESSION: There is no acute fracture or dislocation. Dictated by: Dictated on workstation # [id number]
--- NOTE | 2020-05-26 12:46 | Diagnostic Imaging Report ---
PROCEDURE: CT head and CT cervical spine without contrast. TECHNIQUE: Multiple contiguous axial images were obtained through the brain and cervical spine without the use of intravenous contrast. Sagittal and coronal reformations through the cervical spine were then performed. Auto Exposure Controls were utilized during the CT exam to meet ALARA standards for radiation dose reduction. INDICATION: Fall. Correlation is made with prior CT from 04/26/2020. CT HEAD: The ventricles and sulci remain prominent consistent with cerebral atrophy. There is no sulcal effacement or midline shift. No acute intra-axial or extra-axial hemorrhage is detected. There is moderate periventricular hypodensity consistent with senescent change. Cisterns are patent. Visualized paranasal sinuses are clear. IMPRESSION: Stable noncontrast head CT since prior exam one month earlier. No acute intracranial process is detected. CT CERVICAL SPINE: There is slight reversal of normal cervical lordotic curvature. Minimal retrolisthesis C4 on C5 is noted. There is multilevel degenerative disc disease with disc space narrowing and marginal osteophyte formation. No fractures are seen. Prevertebral tissues are normal. Odontoid is intact. IMPRESSION: Cervical spondylosis. No acute bony abnormality is detected. Dictated by: Dictated on workstation # [id number]
[2020-05-26 13:17] VITALS: BP 128/68
== END 2020-05-26 13:17 | disposition home or self-care (01) ==
LOC: EDUNIT# 11:52 → ER 11:53
DX: S00.93XA Contusion of unspecified part of head, initial encounter (principal); R40.2410 Glasgow coma scale score 13-15, unspecified time; Z20.828 Contact with and (suspected) exposure to other viral communicable diseases; Z88.2 Allergy status to sulfonamides; Z79.82 Long term (current) use of aspirin; W19.XXXA Unspecified fall, initial encounter
CPT/HCPCS: 70450; 72125; 72170; 99283; U0002; 87635

== ENCOUNTER 2020-05-28 19:31 | Inpatient (IN) | payer MEDICARE ==
[~2020-05-28] VITALS: Ht 168 cm; Wt 57.5 kg
[2020-05-28 20:08] LABS: BASOPHILS % (AUTO) 0 % (0-10); EOSINOPHILS % (AUTO) 0 % (0-10); HEMATOCRIT 34 % (35-52); HEMOGLOBIN 11.2 g/dL (11.5-16.0); LYMPHOCYTES # (AUTO) 1.1 10^3/uL (1.0-4.0); LYMPHOCYTES % (AUTO) 15 % (12-44); MEAN CORPUSCULAR HEMOGLOBIN 30 pg (25-34); MEAN CORPUSCULAR HGB CONC 33 g/dL (32-36); MEAN CORPUSCULAR VOLUME 92 fL (80-99); MEAN PLATELET VOLUME 11.9 fL (9.0-12.2); MONOCYTES # (AUTO) 1.3 10^3/uL (0.0-1.0); MONOCYTES % (AUTO) 17 % (0-12); NEUTROPHILS # (AUTO) 5.2 10^3/uL (1.8-7.8); NEUTROPHILS % (AUTO) 68 % (42-75); PLATELET COUNT 154 10^3/uL (130-400); WHITE BLOOD COUNT 7.7 10^3/uL (4.3-11.0)
[2020-05-28 20:12] LABS: ALBUMIN 3.7 GM/DL (3.2-4.5); CHLORIDE 105 MMOL/L (98-107); SODIUM 140 MMOL/L (135-145)
[2020-05-28 20:13] LABS: CALCIUM 8.7 MG/DL (8.5-10.1)
[2020-05-28 20:14] LABS: BILIRUBIN,URINE NEGATIVE (NEGATIVE); CLARITY,URINE SL CLOUDY; COLOR,URINE YELLOW; GLUCOSE, URINE (UA) NEGATIVE (NEGATIVE); KETONES,URINE 1+ (NEGATIVE); LEUKOCYTE ESTERASE ,URINE NEGATIVE (NEGATIVE); NITRITE,URINE NEGATIVE (NEGATIVE); PROTEIN,URINE 1+ (NEGATIVE)
[2020-05-28 20:15] LABS: GLUCOSE 112 MG/DL (70-105); TOTAL PROTEIN 7.4 GM/DL (6.4-8.2)
[2020-05-28 20:16] LABS: BILIRUBIN,TOTAL 0.2 MG/DL (0.1-1.0); CARBON DIOXIDE 25 MMOL/L (21-32); FIBRIN DEGRADATION PRODUCTS 2.52 UG/ML (0.00-0.49); INR 0.9 (0.8-1.4); PROTHROMBIN TIME PATIENT 12.6 SEC (12.2-14.7)
[2020-05-28 20:18] LABS: ALKALINE PHOSPHATASE 108 U/L (40-136); CREATININE SERUM 0.88 MG/DL (0.60-1.30); GFR ESTIMATED > 60
[2020-05-28 20:19] LABS: BUN/CREATININE RATIO 25
[2020-05-28 20:21] LABS: ALANINE AMINOTRANSFERASE 17 U/L (0-55)
[2020-05-28 20:33] LABS: BACTERIA,URINE NEGATIVE /HPF; SQUAMOUS EPITHELIAL CELL,UR RARE /HPF; WBC,URINE 0-2 /HPF
--- NOTE | 2020-05-28 20:44 | Diagnostic Imaging Report ---
EXAM: Chest 1 view, AP/PA only. INDICATION: Sepsis. COMPARISON: Chest radiograph 08/11/2017. FINDINGS: Normal heart size and central pulmonary vascularity. No focal pulmonary opacity, pleural effusion or pneumothorax. No acute osseous finding. IMPRESSION: No acute cardiopulmonary finding. Dictated by: Dictated on workstation # [id number]
--- NOTE | 2020-05-28 21:11 | ED General ---
General Chief Complaint: Altered Mental Status Stated Complaint: FEVER,AMS Nursing Triage Note: brought in by [facility] c/o altered mental status, fever today. Nursing Sepsis Screen: Possible Severe Sepsis Risk Source of Information: Patient Exam Limitations: Physical Impairments History of Present Illness Date Seen by Provider: May 28, 2020 Time Seen by Provider: 19:58 Initial Comments [facility] in a [facility]-term care facility. Patient was noted to have altered mental status. The facility has several cases of COVID-19. She was tested 2 days ago and it was negative. Patient has had fever today and is not drinking well. She does have dementia but otherwise not a lot of health problems. She is on [facility] palliative care/hospice program under the care of Renzo Cordon APRN. She is DO NOT RESUSCITATE. No report of vomiting or diarrhea. No report of breathing problems or hypoxia. Patient is not answering for herself. Timing/Duration: 24 Hours, Getting Worse Severity: Moderate Associated Systoms: No Cough; Fever/Chills; No Nausea/Vomiting, No Shortness of Air Allergies and Home Medications Allergies Coded Allergies: Sulfa (Sulfonamide Antibiotics) (Verified Allergy, Unknown, RASH, 03/11/16) Home Medications Aspirin 81 Mg Tablet.dr, 81 MG PO DAILY, (Reported) Calcium Carbonate 600 Mg Tablet, 600 MG PO DAILY, (Reported) Cefuroxime Axetil 250 Mg Tablet, 250 MG PO BID Prescribed by: KRISTIE GOEL on 08/11/17 1327 Glucosa Vora 2Kcl/Chondroitin Vora 1 Each Capsule, 1 EACH PO DAILY, (Reported) Multivitamin 1 Each Tablet, 1 EACH PO DAILY, (Reported) Pantoprazole Sodium 40 Mg Tablet.dr, 40 MG PO DAILY Prescribed by: ROSI REY on 03/15/16 1153 Patient Home Medication List Home Medication List Reviewed: Yes Review of Systems Review of Systems Constitutional: fever, weakness Unable to complete review of systems due to altered mental status and underlying advanced dementia. Past Nbgzlmp-Lstgim-Ztwyhf Hx Past Med/Social Hx: Reviewed Nursing Past Med/Soc Hx Patient Social History Alcohol Use: Denies Use Recreational Drug Use: No Smoking Status: Unknown if Ever Smoked 2nd Hand Smoke Exposure: No Recent Foreign Travel: No Contact w/Someone Who Travel: No Recent Infectious Disease Expo: No Recent Hopitalizations: No Immunizations Up To Date Tetanus Booster (TDap): Unknown Seasonal Allergies Seasonal Allergies: No Past Medical History Surgeries: Yes Respiratory: No Cardiac: Yes Syncope Neurological: No : No Reproductive Disorders: No REGIONAL RECRUITER History: Menopausal Genitourinary: No Gastrointestinal: Yes Polyps Musculoskeletal: No Endocrine: No Cancer: No Psychosocial: No Integumentary: No Family Medical History Reviewed Nursing Family Hx No Pertinent Family Hx Physical Exam-Suspected Sepsis Physical Exam Vital Signs Vital Signs - First Documented 05/28/20 19:33 Temp 36.5 Pulse 96 Resp 15 B/P (MAP) 180/104 (129) Pulse Ox 96 O2 Delivery Room Air Capillary Refill : Less Than 3 Seconds Blood Pressure Mean: 129 Height, Weight, BMI Height: 5'9.00" Weight: 121lbs. 0.0oz. 54.205066lp; 25.00 BMI Method:Estimated General Appearance: No Apparent Distress, Thin HEENT: PERRL/EOMI, Pharynx Normal Neck: Non Tender, Supple Respiratory: Lungs Clear, Normal Breath Sounds Cardiovascular: Regular Rate, Rhythm, No Murmur Gastrointestinal: Non Tender, Soft Back: Normal Inspection, No CVA Tenderness, No Vertebral Tenderness Extremity: Non Tender, No Calf Tenderness, No Pedal Edema Neurologic/Psychiatric: Other (mumbles and did open her mouth for me when assisted but otherwise does not follow commands or answer questions) Skin: normal color, warm/dry Focused Exam Lactate Level 05/28/20 19:45: Lactic Acid Level 0.97 Lactic Acid Level Laboratory Tests Test 05/28/20 19:45 Lactic Acid Level 0.97 MMOL/L (0.50-2.00) Progress/Results/Core Measures Suspected Sepsis Recent Fever Within 48 Hours: Yes Infection Criteria Present: Suspected New Infection New/Unexplained Altered Menta: Yes Sepsis Screen: Possible Severe Sepsis Risk SIRS Temperature: Pulse: 96 Respiratory Rate: 15 Laboratory Tests 05/28/20 19:45: White Blood Count 7.7 Blood Pressure 180 /104 Mean: 129 05/28/20 19:45: Lactic Acid Level 0.97 Laboratory Tests 05/28/20 19:45: Creatinine 0.88, INR Comment 0.9, Platelet Count 154, Total Bilirubin 0.2 Results/Orders Lab Results Laboratory Tests Test 05/28/20 19:40 05/28/20 19:45 05/28/20 20:00 Range/Units Urine Color YELLOW Urine Clarity SL CLOUDY Urine pH 6.0 5-9 Urine Specific [place] 1.020 1.016-1.022 Urine Protein 1+ H NEGATIVE Urine Glucose (UA) NEGATIVE NEGATIVE Urine Ketones 1+ H NEGATIVE Urine Nitrite NEGATIVE NEGATIVE Urine Bilirubin NEGATIVE NEGATIVE Urine Urobilinogen 1.0 < = 1.0 MG/DL Urine Leukocyte Esterase NEGATIVE NEGATIVE Urine RBC (Auto) 2+ H NEGATIVE Urine RBC 5-10 H /HPF Urine WBC 0-2 /HPF Urine Squamous Epithelial Cells RARE /HPF Urine Crystals NONE /LPF Urine Bacteria NEGATIVE /HPF Urine Casts NONE /LPF Urine Mucus MODERATE H /LPF Urine Culture Indicated CULTURE PENDING White Blood Count 7.7 4.3-11.0 10^3/uL Red Blood Count 3.69 L 3.80-5.11 10^6/uL Hemoglobin 11.2 L 11.5-16.0 g/dL Hematocrit 34 L 35-52 % Mean Corpuscular Volume 92 80-99 fL Mean Corpuscular Hemoglobin 30 25-34 pg Mean Corpuscular Hemoglobin Concent 33 32-36 g/dL Red Cell Distribution Width 15.2 H 10.0-14.5 % Platelet Count 154 130-400 10^3/uL Mean Platelet Volume 11.9 9.0-12.2 fL Immature Granulocyte % (Auto) 0 % Neutrophils (%) (Auto) 68 42-75 % Lymphocytes (%) (Auto) 15 12-44 % Monocytes (%) (Auto) 17 H 0-12 % Eosinophils (%) (Auto) 0 0-10 % Basophils (%) (Auto) 0 0-10 % Neutrophils # (Auto) 5.2 1.8-7.8 10^3/uL Lymphocytes # (Auto) 1.1 1.0-4.0 10^3/uL Monocytes # (Auto) 1.3 H 0.0-1.0 10^3/uL Eosinophils # (Auto) 0.0 0.0-0.3 10^3/uL Basophils # (Auto) 0.0 0.0-0.1 10^3/uL Immature Granulocyte # (Auto) 0.0 0.0-0.1 10^3/uL Prothrombin Time 12.6 12.2-14.7 SEC INR Comment 0.9 0.8-1.4 Activated Partial Thromboplast Time 32 24-35 SEC D-Dimer 2.52 H 0.00-0.49 UG/ML Sodium Level 140 135-145 MMOL/L Potassium Level 4.0 3.6-5.0 MMOL/L Chloride Level 105 98-107 MMOL/L Carbon Dioxide Level 25 21-32 MMOL/L Anion Gap 10 5-14 MMOL/L Blood Urea Nitrogen 22 H 7-18 MG/DL Creatinine 0.88 0.60-1.30 MG/DL Estimat Glomerular Filtration Rate > 60 BUN/Creatinine Ratio 25 Glucose Level 112 H 70-105 MG/DL Lactic Acid Level 0.97 0.50-2.00 MMOL/L Calcium Level 8.7 8.5-10.1 MG/DL Corrected Calcium 8.9 8.5-10.1 MG/DL Total Bilirubin 0.2 0.1-1.0 MG/DL Aspartate Amino Transf (AST/SGOT) 46 H 5-34 U/L Alanine Aminotransferase (ALT/SGPT) 17 0-55 U/L Alkaline Phosphatase 108 40-136 U/L C-Reactive Protein High Sensitivity 1.76 H 0.00-0.50 MG/DL Total Protein 7.4 6.4-8.2 GM/DL Albumin 3.7 3.2-4.5 GM/DL Procalcitonin 0.04 <0.10 NG/ML Coronavirus 2019 (QUIANA) Positive H Negative Micro Results Microbiology 05/28/20 Influenza Types A,B Antigen (NORI) - Final, Complete My Orders Orders - LARON MEYER MD Cbc With Automated Diff (05/28/20 19:57) Comprehensive Metabolic Panel (05/28/20 19:57) Blood Culture (05/28/20 19:57) Sputum Culture (05/28/20 19:57) Urinalysis (05/28/20 19:57) Urine Culture (05/28/20 19:57) Protime With Inr (05/28/20 19:57) Partial Thromboplastin Time (05/28/20 19:57) Chest 1 View, Ap/Pa Only (05/28/20 19:57) Ed Iv/Invasive Line Start (05/28/20 19:57) Vital Signs Adult Sepsis Patie Q15M (05/28/20 19:57) O2 (05/28/20 19:57) Remove Rings In Anticipation O (05/28/20 19:57) Lactic Acid Analyzer (05/28/20 19:57) Influenza A And B Antigens (05/28/20 19:57) Fibrin Degradation Products (05/28/20 19:57) Procalcitonin (Pct) (05/28/20 19:57) Hs C Reactive Protein (05/28/20 19:57) Covid 19 Inhouse Test (05/28/20 19:57) Convalescent Plasma (05/28/20 20:47) Dexamethasone Injection (Decadron Injec (05/28/20 21:00) Abo Rh Type (05/28/20 20:47) Vital Signs/I&O 05/28/20 19:33 Temp 36.5 Pulse 96 Resp 15 B/P (MAP) 180/104 (129) Pulse Ox 96 O2 Delivery Room Air Capillary Refill : Less Than 3 Seconds Blood Pressure Mean: 129 Progress Note : Progress Note Seen and evaluated. Sepsis protocol initiated. Rapid COVID-19 swab done as well as influenza swab. Monitor patient. 2038: I did discuss the case with Dr. Benavides. Patient is COVID-19 positive and influenza negative. She is not requiring oxygen but she is not really eating or drinking. In this setting, admission is reasonable to provide appropriate hydration and convalescent plasma as well as Decadron. Those were ordered and we will do initial dose of Decadron IV. I did speak with her daughter, DURABLE POWER OF APPLICATION DBA, Kayley Hoover. We did discuss current therapy. We will do admission. She would like to have discussion regarding intubation if it came to that although patient is DO NOT RESUSCITATE. Patient apparently is currently on a Bridge program to hospice with palliative care under the direction of Renzo Cordon APRN. Not sure if she is on full hospice or if this is just palliative care outpatient. We will continue current therapy and will do palliative care hospital consult. Admit, inpatient status. Family agrees with plan. Diagnostic Imaging Diagonstic Imaging: Xray Plain Films/CT/US/NM/MRI: chest Comments [facility] [place], [place] NAME: NIDA FERNANDES [facility] REC#: [id number] PT STATUS: REG ER : 1940 PHYSICIAN: LARON MEYER MD ADMIT DATE: 05/28/20/ER Draft Date of Exam:05/28/20 CHEST 1 VIEW, AP/PA ONLY EXAM: Chest 1 view, AP/PA only. INDICATION: Sepsis. COMPARISON: Chest radiograph 08/11/2017. FINDINGS: Normal heart size and central pulmonary vascularity. No focal pulmonary opacity, pleural effusion or pneumothorax. No acute osseous finding. IMPRESSION: No acute cardiopulmonary finding. Dictated on workstation # [id number] Dict: 05/28/202042 Trans: 05/28/202043 [facility] [id number] Interpreted by: MARJ SCHOFIELD MD Electronically signed by: Departure Communication (Admissions) Time/Spoke to Admitting Phy: 20:39 Impression Primary Impression: COVID-19 virus infection Additional Impression: Altered mental status Qualified Codes: R40.0 - Somnolence Disposition: ADMITTED INPATIENT Condition: Stable Admissions Decision to Admit Reason: Admit from ER (General) Decision to Admit/Date: May 28, 2020 Time/Decision to Admit Time: 20:39 Departure-Patient Inst. Referrals: ROSARIO DELGADO MD (PCP/Family) Primary Care Physician LARON MEYER MD May 28, 2020 21:11
--- NOTE | 2020-05-28 21:24 | NUR ---
floor rn unable to take report at this time. stated he would call back.
--- NOTE | 2020-05-28 22:40 | NUR ---
NIDA FERNANDES admitted to room 423-1, with an admitting diagnosis of COVID-19 Infection and Altered Mental Status, on 05/28/20 from ED via stretcher, accompanied by staff.NIDA FERNANDES introduced to surroundings, call light, bed controls, phone, TV, temperature control, lights, meal times, smoking policy, visitor policy, side rail policy, bathrooms and showers. Patient Rights given to patient in the handbook. NIDA FERNANDES verbalizes understanding that [facility] is not responsible for the loss or damage to any personal effects or valuables that are kept in the patients posession during their hospitalization. Patient and/or family were informed about the Rapid Response Team and its purpose.
--- NOTE | 2020-05-28 22:40 | NUR ---
Pt is unresponsive and would only open eyes when sternum rubbed. Per ED nurse, pt has been that way since her arrival. Unable to get any information. All information gathered is based on pt records sent from [facility].
[2020-05-28] MEDS ORDERED: NS IV 1000 ML 1,000 ML ONE (22:41)
[2020-05-28 22:48] VITALS: BP 183/88
[2020-05-28] MEDS ORDERED: NS IV 1000 ML 1,000 ML IV SCH (23:00)
[2020-05-28] MEDS ORDERED: ACETAMINOPHEN 325 MG TABLET PO PRN (23:00)
[2020-05-28] MEDS ORDERED: ACETAMINOPHEN 650 MG SUPP (TYLENOL) PR PRN (23:00)
[2020-05-29] VITALS (9 sets, daily range): BP systolic 110–147; BP diastolic 55–85
[2020-05-29 06:26] LABS: ALBUMIN 3.5 GM/DL (3.2-4.5)
[2020-05-29 06:27] LABS: CHLORIDE 107 MMOL/L (98-107); SODIUM 142 MMOL/L (135-145)
[2020-05-29 06:28] LABS: CALCIUM 8.7 MG/DL (8.5-10.1)
[2020-05-29 06:29] LABS: GLUCOSE 131 MG/DL (70-105); TOTAL PROTEIN 7.1 GM/DL (6.4-8.2)
[2020-05-29 06:30] LABS: CARBON DIOXIDE 24 MMOL/L (21-32)
[2020-05-29 06:31] LABS: BILIRUBIN,TOTAL 0.2 MG/DL (0.1-1.0)
[2020-05-29 06:32] LABS: ALKALINE PHOSPHATASE 96 U/L (40-136)
[2020-05-29 06:33] LABS: CREATININE SERUM 0.81 MG/DL (0.60-1.30); GFR ESTIMATED > 60
[2020-05-29 06:34] LABS: BUN/CREATININE RATIO 23
[2020-05-29 06:35] LABS: ALANINE AMINOTRANSFERASE 16 U/L (0-55)
[2020-05-29 06:42] LABS: BASOPHILS % (AUTO) 0 % (0-10); EOSINOPHILS % (AUTO) 0 % (0-10); HEMATOCRIT 32 % (35-52); HEMOGLOBIN 10.5 g/dL (11.5-16.0); LYMPHOCYTES # (AUTO) 0.8 10^3/uL (1.0-4.0); LYMPHOCYTES % (AUTO) 14 % (12-44); MEAN CORPUSCULAR HEMOGLOBIN 30 pg (25-34); MEAN CORPUSCULAR HGB CONC 33 g/dL (32-36); MEAN CORPUSCULAR VOLUME 92 fL (80-99); MEAN PLATELET VOLUME 12.5 fL (9.0-12.2); MONOCYTES # (AUTO) 0.3 10^3/uL (0.0-1.0); MONOCYTES % (AUTO) 6 % (0-12); NEUTROPHILS # (AUTO) 4.5 10^3/uL (1.8-7.8); NEUTROPHILS % (AUTO) 81 % (42-75); PLATELET COUNT 139 10^3/uL (130-400); WHITE BLOOD COUNT 5.6 10^3/uL (4.3-11.0)
[2020-05-29] MEDS ORDERED: DONE10TA12 PO (13:38)
[2020-05-29] MEDS ORDERED: ACET-2267 PO (13:38)
[2020-05-29] MEDS ORDERED: PEG15DRO5 OU (13:38)
[2020-05-29] MEDS ORDERED: MIRT15TA6 PO (13:38)
[2020-05-29] MEDS ORDERED: ASPI-1238 PO (13:38)
[2020-05-29] MEDS ORDERED: DIVA125C PO ×2 (13:51)
[2020-05-29] MEDS ORDERED: [UNRECOGNIZED DRUG - OTHER] INJ (13:51)
--- NOTE | 2020-05-29 13:53 | NUR ---
MED REC WAS ENTERED USING THE MAR FROM [facility] I CALLED THE FACILITY AND CHECKED ON THE DEPAKOTE 125MG- THE DIRECTIONS FROM THE PHARMACY ARE 250MG (2- 125MG CAPS) BID HOWEVER PT IS NOW TAKING 125MG AM AND 250MG HS
[2020-05-29] MEDS ORDERED: ACETAMINOPHEN 325 MG TABLET PO PRN (15:45)
[2020-05-29] MEDS ORDERED: HALOPERIDOL 2 MG (HALDOL) TABLET PO PRN (15:45)
[2020-05-29] MEDS ORDERED: HALOPERIDOL 5 MG/ML (HALDOL) VIAL IM PRN (15:45)
[2020-05-29] MEDS ORDERED: BISACODYL 10 MG SUPP (DULCOLAX) PR PRN (15:45)
[2020-05-29] MEDS ORDERED: ONDANSETRON 4 MG/2 ML (SDV) Z0FRAN IV PRN (15:45)
[2020-05-29] MEDS ORDERED: ANTACID SUSP 30 ML UDC (MYLANTA) PO PRN (15:45)
[2020-05-29] MEDS ORDERED: polyethylene glycoL POWDER 17 GM (MIRALAX) PACK PO PRN (15:45)
[2020-05-29] MEDS ORDERED: MELATONIN 3 MG TABLET PO PRN (15:45)
[2020-05-29] MEDS ORDERED: ONDANSETRON 4 MG (ZOFRAN) ORAL DISSOLVE TAB PO PRN (15:45)
[2020-05-29] MEDS ORDERED: HALOPERIDOL 0.5 MG (HALDOL) TAB PO PRN (15:45)
[2020-05-29] MEDS ORDERED: CATHETER FLUSH 10 ML SYR IV PRN (16:00)
[2020-05-29] MEDS: ENOXAPARIN 40 MG/0.4 ML (LOVENOX) SYR SC SCH (16:03)
--- NOTE | 2020-05-29 16:05 | History & Physical-Hospitalist ---
History of Present Illness HPI/Chief Complaint Pat Umanzor is a 79 year old female with advanced dementia who presented from her long-term care facility with altered mental status. There has reportedly been several cases of COVID at the facility. She tested negative just a couple days ago. She was not acting herself though and was thus brought in. She is unable to speak at that time of my interview. She appears comfortable. Source: RN/MD Exam Limitations: clinical condition Date Seen 05/29/20 Time Seen by a Provider: 10:00 Attending Physician Michelle Tobias MD PCP Gabriella Guevara MD Referring Physician Date of Admission May 28, 2020 at 21:23 Home Medications & Allergies Home Medications Reviewed patient Home Medication Reconciliation performed by pharmacy medication reconciliations aerospace technician and/or nursing. Patients Allergies have been reviewed. Allergies Allergies Coded Allergies Sulfa (Sulfonamide Antibiotics) (Verified Allergy, Unknown, RASH, 03/11/16) Past Emzzvlo-Tbgqtt-Uqlsno Hx Past Med/Social Hx: Reviewed Nursing Past Med/Soc Hx Patient Social History Alcohol Use: Denies Use Recreational Drug Use: No Smoking Status: Unknown if Ever Smoked 2nd Hand Smoke Exposure: No Recent Foreign Travel: No Contact w/other who traveled: No Recent Hopitalizations: No Recent Infectious Disease Expo: Yes (has COVID 19) Immunizations Up To Date Tetanus Booster (TDap): Unknown Seasonal Allergies Seasonal Allergies: No Past Medical History Cardiac: Syncope : No Reproductive: No Menopausal Gastrointestinal: Polyps Family History Reviewed Nursing Family Hx No Pertinent Family Hx Review of Systems Constitutional: see HPI Physical Exam Physical Exam Vital Signs Vital Signs - First Documented 05/28/20 19:33 Temp 36.5 Pulse 96 Resp 15 B/P (MAP) 180/104 (129) Pulse Ox 96 O2 Delivery Room Air Capillary Refill : Less Than 3 Seconds Height, Weight, BMI Height: 5'9.00" Weight: 121lbs. 0.0oz. 54.249992uf; 20.37 BMI Method:Estimated General Appearance: No Apparent Distress, WD/WN HEENT: PERRL/EOMI, Pharynx Normal Neck: Normal Inspection, Supple Respiratory: Lungs Clear, Normal Breath Sounds, No Respiratory Distress Cardiovascular: Regular Rate, Rhythm, No Edema, No Murmur Gastrointestinal: Normal Bowel Sounds, Non Tender, Soft Extremity: Normal Inspection, Non Tender, No Pedal Edema Neurologic/Psychiatric: Alert, Oriented x3, No Motor/Sensory Deficits, Normal Mood/Affect Skin: Normal Color, Warm/Dry Results Results/Procedures Labs Laboratory Tests 05/28/20 19:45 05/29/20 05:26 Patient resulted labs reviewed. Imaging: Reviewed Imaging Report Assessment/Plan Admission Diagnosis COVID-19 Admission Status: Inpatient Order (span 2 midnights) Reason for Inpatient Admission: COVID-19 requiring medical treatment Assessment and Plan COVID-19 Advanced dementia COVID positive Decadron s/p 1 unit convalescent plasma Supplemental oxygen as needed Palliative care consulted, appreciate assistance DVT Prophylaxis: Lovenox Diagnosis/Problems Diagnosis/Problems (1) COVID-19 virus infection Status: Acute (2) Advanced dementia Status: Chronic MICHELLE TOBIAS MD May 29, 2020 16:05
--- NOTE | 2020-05-29 18:02 | NUR ---
Report called to nurse Zenaida who will assume care of this patient when she arrives back home Addendum: 05/29/20 at 1805 by JO FU RN report called to [facility] / memory care unit of [facility]
[2020-05-29] MEDS: SENNOSIDES 8.6 MG (SENOKOT) TAB PO SCH (20:13)
[2020-05-29] MEDS: DOCUSATE SODIUM 100 MG (COLACE) CAP PO SCH (20:13)
[2020-05-29] MEDS: MIRTAZAPINE 15 MG (REMERON) TAB PO SCH (20:13)
[2020-05-29] MEDS: DONEPEZIL 10 MG (ARICEPT) TAB PO SCH (20:14)
[2020-05-29] MEDS: DIVALPROX SPRINKLE 125 MG (DEPAKOTE) CAP PO SCH (20:14)
[2020-05-29] MEDS ORDERED: [UNRECOGNIZED DRUG - OTHER] OU SCH (21:00)
[2020-05-29] MEDS ORDERED: PEG OU SCH (21:00)
[2020-05-29] MEDS ORDERED: NON-FORMULARY MEDICATION 1 EA EA (Mirtazapine 15 MG) PO SCH (21:00)
[2020-05-29] MEDS ORDERED: HYPROMELLOSE OU SCH (21:00)
[2020-05-29] MEDS ORDERED: GLYCERIN OU SCH (21:00)
[2020-05-29] MEDS: ARTIFICAL TEARS 0.4 ML UNIT DOSE (REFRESH PLUS) OU SCH (21:13)
--- NOTE | 2020-05-29 23:34 | NUR ---
This nurse recieved a phone call from this pt's DPOA, Kayley Hoover, in regards to an update on this pt. No pt password was set up, so I notified Lopez Galeana, and she said to double check in the chart the person calling was the pts DPOA. I verified in the chart she is her DPOA, and Kayley chose the password " [employer]finder." PT update was given, will continue to monitor and provide care as ordered.
[2020-05-30] VITALS (7 sets, daily range): BP systolic 129–165; BP diastolic 65–94
--- NOTE | 2020-05-30 01:10 | NUR ---
PT update - This RN assumed care for this pt at 0700. Pt is currently confused, and alert and oriented to person/shaking/light/deep pain stimuli. When I enter the room, the pt will be talking to herself rambling words, speaking unclear sentences. This pt's daughter Kayley did call as previously noted coming onto shift, and pt perked right up and snapped out of her rambling sentences, and spoke clearly to her daughter in a normal conversation, telling Kayley diggs and she was doing ok and she loved her daughter. Once the phone call ended, the pt went back to rambling to herself and seemed confused again. PT is incontinent (diaper/bedside commode) and is q2 turn and X2 assist to commode, but dayshift said they struggled getting her up. There's an order via Dr. Rose to leave IV out as PT has kept ripping out her IV's, and pt is NPO. She took sips of water for me and she ate a cup of pudding for me with her 2100 meds, an had one wet diaper. Will continue to monitor and provide care as ordered.
--- NOTE | 2020-05-30 01:20 | NUR ---
I assumed care for this pt at 1900, not 0700.
[2020-05-30] MEDS: DOCUSATE SODIUM 100 MG (COLACE) CAP PO SCH ×3 (08:57→20:00)
[2020-05-30] MEDS: SENNOSIDES 8.6 MG (SENOKOT) TAB PO SCH ×2 (08:57→20:00)
[2020-05-30] MEDS: ASPIRIN E.C. 81 MG (ECOTRIN) TAB PO SCH (08:57)
[2020-05-30] MEDS: DIVALPROX SPRINKLE 125 MG (DEPAKOTE) CAP PO SCH ×2 (08:57→20:00)
--- NOTE | 2020-05-30 11:53 | NUR ---
CM/SS: Telephone call to [facility] -[phone] - spoke with nurse Zelalem , letting her know that pt can be discharged today and return to the care home. Zelalem indicates that the pt can not return today as they have others with COVID. She feels as if pt can not come today. She reports pt can return tomorrow. Dr. Rose notified that pt can not return today. This worker will follow up.
--- NOTE | 2020-05-30 12:06 | Progress Note - Hospitalist ---
Subjective HPI/CC On Admission Date Seen by Provider: May 30, 2020 Time Seen by Provider: 10:25 Pat Umanzor is a 79 year old female with advanced dementia who presented from her long-term care facility with altered mental status. There has reportedly been several cases of COVID at the facility. She tested negative just a couple days ago. She was not acting herself though and was thus brought in. She is unable to speak at that time of my interview. She appears comfortable. Subjective/Events-last exam She is alert but disoriented. She speaks words but is speaking "word salad". Focused Exam Lactate Level 05/28/20 19:45: Lactic Acid Level 0.97 Objective Exam Vital Signs Vital Signs Date Time Temp Pulse Resp B/P (MAP) Pulse Ox O2 Delivery O2 Flow Rate FiO2 05/30/20 11:14 35.4 65 18 135/65 (88) 100 Room Air Capillary Refill : Less Than 3 Seconds General Appearance: No Apparent Distress, Chronically ill Respiratory: Lungs Clear, Normal Breath Sounds, No Respiratory Distress Cardiovascular: Regular Rate, Rhythm, No Edema, No Murmur Gastrointestinal: Normal Bowel Sounds, Non Tender, Soft Extremity: Normal Inspection, Non Tender, No Pedal Edema Neurologic/Psychiatric: Alert, Aphasia (expressive), Disoriented Skin: Normal Color, Warm/Dry Results/Procedures Lab Patient resulted labs reviewed. Imaging: Reviewed Imaging Report Assessment/Plan Assessment and Plan Assess & Plan/Chief Complaint COVID-19 Advanced dementia COVID positive Decadron s/p 1 unit convalescent plasma not requiring supplemental oxygen Palliative care consulted, appreciate assistance medically stable for discharge, plan for transfer back to [facility] tomorrow DVT Prophylaxis: Lovenox Diagnosis/Problems Diagnosis/Problems (1) COVID-19 virus infection Status: Acute (2) Advanced dementia Status: Chronic MICHELLE TOBIAS MD May 30, 2020 12:06
[2020-05-30] MEDS ORDERED: dexAMETHasone 6 MG TAB (DECADRON) PO NR (12:30)
--- NOTE | 2020-05-30 14:00 | NUR ---
"RD ASSESSMENT PMHx: advanced dementia; no other PMH PT INTERACTION: Note pt currently in COVID isolation, per chart review. Note all diet information for nutrition assessment is per chart review or per Jhoana RN. Note avg PO intake 31% x1d, per chart review. Jesseniakumar states no issues with nausea, vomiting, constipation, or diarrhea that she is aware of. Note last BM was 05/27, per chart review. Note recent 23# wt loss x2mon, per chart review. Note this is significant wt loss at 15%. ABNORMAL NUTRITION-RELATED LAB VALUES LOW: HIGH: BUN 19; glu 131; AST 44 Est. kcal needs: 1450 kcal | 25 kcal/kg Est. Pro needs: 58 g Pro | 1.0 g Pro/kg PES STATEMENT: Inadequate oral intake (NI-2.1) related to loss of appetite as evidenced by chart review | communication with RN | avg PO intake 31% x1d INTERVENTION: Continue with current diet order of Regular diet. Add Ensure Enlive (vary) to meals TID, for increased kcal intake. Provides 350 kcal and 20 g Pro per serving. Will continue to follow and reassess as pt needs, intake, and status change. Michele Polk, MS RD LD"
[2020-05-30] MEDS: ENOXAPARIN 40 MG/0.4 ML (LOVENOX) SYR SC SCH (15:03)
--- NOTE | 2020-05-30 15:12 | NUR ---
CM/SS: Telephone Call from Daughter Kayley [phone]. Wanted to know when pt was going to be discharged [facility] to [facility]. She is given information that pt is not on oxygen and remains stable and does not have any active symptoms at this time. Pt should be able to leave tomorrow, as [facility] was unable to take pt today. Daughter appreciates the information. This worker will follow up with daughter on tomorrow as to discharge plan for pt.
[2020-05-30] MEDS: MIRTAZAPINE 15 MG (REMERON) TAB PO SCH (20:00)
[2020-05-30] MEDS: ARTIFICAL TEARS 0.4 ML UNIT DOSE (REFRESH PLUS) OU SCH (20:00)
[2020-05-30] MEDS: DONEPEZIL 10 MG (ARICEPT) TAB PO SCH (20:00)
[2020-05-31 04:00] VITALS: BP 136/88
[2020-05-31] MEDS ORDERED: dexAMETHasone 6 MG TAB (DECADRON) PO SCH (07:00)
[2020-05-31 08:07] VITALS: BP 165/85
[2020-05-31] MEDS: DIVALPROX SPRINKLE 125 MG (DEPAKOTE) CAP PO SCH (08:43)
[2020-05-31] MEDS: ASPIRIN E.C. 81 MG (ECOTRIN) TAB PO SCH (08:43)
[2020-05-31] MEDS: SENNOSIDES 8.6 MG (SENOKOT) TAB PO SCH (09:00)
[2020-05-31] MEDS: DOCUSATE SODIUM 100 MG (COLACE) CAP PO SCH (09:00)
--- NOTE | 2020-05-31 13:34 | Discharge Summary ---
Discharge Summary Hospital Course Was the Problem List Reviewed?: Yes Problems/Dx: (1) COVID-19 virus infection Status: Acute (2) Advanced dementia Status: Chronic Hospital Course Date of Admission: May 28, 2020 at 21:23 Admission Diagnosis : COVID-19 Family Physician/Provider: Gabriella Delgado MD Date of Discharge: 05/31/20 Discharge Diagnosis: COVID-19 Hospital Course: Pat Umanzor is a 80-year-old female with advanced dementia who was admitted with COVID-19. She was treated with Decadron. She also received 1 unit of convalescent plasma. She was not given Remdesivir because she was not hypoxic. She remained stable. She was discharged back to her long-term care facility. Labs and Pending Lab Test: Laboratory Tests 05/30/20 14:46: Lab Scanned Report Transfusion Reaction Form Microbiology 05/28/20 Blood Culture - Preliminary, Resulted No growth 05/28/20 Influenza Types A,B Antigen (NORI) - Final, Complete 05/28/20 Urine Culture - Final, Complete NO GROWTH Home Meds Active Reported Depakote Sprinkle (Divalproex Sodium) 125 Mg Cap 250 Mg PO HS TAKES 2 (125MG) TABS Depakote Sprinkle (Divalproex Sodium) 125 Mg Cap 125 Mg PO DAILY [Ab Gel] 1 Syringe INJ Q6H PRN Tylenol Extra Strength (Acetaminophen) 500 Mg Tablet 1,000 Mg PO Q6H PRN Mirtazapine 15 Mg Tablet 15 Mg PO HS Artificial Tears Drops (Peg 400/Hypromellose/Glycerin) 15 Ml Drops 1 Drop OU HS Aricept (Donepezil HCl) 10 Mg Tablet 10 Mg PO HS Aspirin EC (Aspirin) 81 Mg Tablet.dr 81 Mg PO DAILY Assessment/Pt Instructions Take medications as prescribed. Follow up with your PCP. Return with worsening shortness of breath or you feel like you're getting worse. Discharge Planning: <30 minutes discharge planning Discharge Instructions Discharge Diet: No Restrictions Activity as Tolerated: Yes Discharge Physical Examination Vital Signs Vital Signs Date Time Temp Pulse Resp B/P (MAP) Pulse Ox O2 Delivery O2 Flow Rate FiO2 05/31/20 08:07 36.0 73 16 165/85 (111) 98 Room Air General Appearance: No Apparent Distress, Chronically ill Respiratory: Lungs Clear, Normal Breath Sounds, No Respiratory Distress Cardiovascular: Regular Rate, Rhythm, No Edema, No Murmur Gastrointestinal: Normal Bowel Sounds, Soft Extremity: Normal Inspection, No Pedal Edema Skin: Normal Color, Warm/Dry Neurologic/Psychiatric: Alert, Aphasia (expressive), Disoriented Allergies: Coded Allergies: Sulfa (Sulfonamide Antibiotics) (Verified Allergy, Unknown, RASH, 03/11/16) Copy Copies To 1: GABRIELLA DELGADO MD Discharge Summary Date of Admission May 28, 2020 at 21:23 Date of Discharge Discharge Date: May 31, 2020 Discharge Time: 15:30 Admission Diagnosis COVID-19 Discharge Diagnosis COVID-19 (1) COVID-19 virus infection Status: Acute (2) Advanced dementia Status: Chronic MICHELLE TOBIAS MD May 31, 2020 13:33
--- NOTE | 2020-05-31 13:59 | NUR ---
CM/SS: Call to [facility] - left message (11:30am) Call again (1:00pm) they are notified that pt can discharge today. Speak with Zelalem. She reports they can apple picker pt at 3:30pm today. This worker lets [facility] know that they will notify daughter of pt returning today.
--- NOTE | 2020-05-31 14:02 | NUR ---
CM/SS: Call to daughter Kayley - [phone] - letting her know that pt will return to [facility] today at 3:30p. She appreciates the update.
[2020-05-31 15:34] VITALS: BP 157/87
--- NOTE | 2020-05-31 16:09 | NUR ---
CM/SS: [facility] is unable to transport patient back - they are requesting non emergent EMS transport to home.
--- NOTE | 2020-05-31 16:10 | NUR ---
CM/SS: Information faxed to [facility] - call made to shift captain requesting transfer. EMS will be able to transport pt. [facility] - notified that EMS will be able to transfer pt from hospital to home.
[2020-05-31 16:49] VITALS: BP 157/87
== END 2020-05-31 16:40 | DRG 179 ==
LOC: EDUNIT# 19:31 → ER 19:35 → 4TH 21:23
PROVIDERS: ADMIT Family Medicine; ATTEND Internal Medicine
PROC: XW13325 Transfusion of Convalescent Plasma (Nonautologous) into Peripheral Vein, Percutaneous Approach, New Technology Group 5 (ICD-10-PCS; principal; 2020-05-29)
DX: U07.1 COVID-19 (principal); R40.0 Somnolence; F03.90 Unspecified dementia, unspecified severity, without behavioral disturbance, psychotic disturbance, mood disturbance, and anxiety; Z66 Do not resuscitate
CPT/HCPCS: 36415; 71045; 80053; 81000; 83605; 84145; 85025; 85379; 85610; 85730; 86141; 86900; 86901; 87040; 87077; 87088; 87635; 87804

== ENCOUNTER 2020-06-28 05:30 | Emergency (ER) | payer MEDICARE ==
[~2020-06-28] VITALS: Ht 168 cm; Wt 57.5 kg
[~2020-06-28 05:30] MED LIST changes: +ACET-2267 PO; +ASPI-1238 PO; +DIVA125C PO; +DONE10TA12 PO; +MIRT15TA6 PO; +PEG15DRO5 OU; +[UNRECOGNIZED DRUG - OTHER] INJ
--- NOTE | 2020-06-28 06:24 | Diagnostic Imaging Report ---
INDICATION: Fall. FINDINGS: Single view of the chest shows normal heart size and vascularity. The lungs are clear. There is no effusion or pneumothorax. There is no acute bony abnormality. IMPRESSION: No acute abnormality is seen with no change from 05/28/2020. Dictated by: Dictated on workstation # [id number]
--- NOTE | 2020-06-28 06:26 | Diagnostic Imaging Report ---
INDICATION: Fall, pelvic pain A single view of the pelvis shows no fracture, dislocation or other acute abnormality. IMPRESSION: No acute abnormality is seen with no change from 05/26/2020. Dictated by: Dictated on workstation # [id number]
--- NOTE | 2020-06-28 06:48 | ED Fall/Injury ---
General Chief Complaint: Trauma-Non Activation Stated Complaint: HIT NOSE,HEAD BUMP, COVID + Nursing Triage Note: brought in by [facility] s/p unwitness fall approx. 0500. pt with c-collar in place. blood to right nare. pupils equal. Source: EMS History of Present Illness Date Seen by Provider: Jun 28, 2020 Time Seen by Provider: 05:35 Initial Comments PT ARRIVES VIA EMS FROM [facility] PT HAD AN UNWITNESSED FALL THIS MORNING--WAS FOUND SITTING ON THE FLOOR, WEDGED BETWEEN BED AND THE WALL, BY NURSING STAFF AROUND 0500 THIS AM PT HAS SWELLING AND BRUISING TO NOSE AND DRIED BLOOD FROM RIGHT NARE PT HAS SEVERE DEMENTIA AND IS MINIMALLY VERBAL--MENTATION IS PT'S NORMAL BASELINE, ACCORDING TO SENIOR LIVING STAFF PT TESTED + FOR COVID-19 ON 05/26/20, AND RETEST ON 06/23 WAS STILL POSITIVE PT REPORTEDLY HAS NOT HAD FEVER IN OVER 72 HOURS, AND HAS NOT HAD ANY SYMPTOMS. Allergies and Home Medications Allergies Coded Allergies: Sulfa (Sulfonamide Antibiotics) (Verified Allergy, Unknown, RASH, 03/11/16) Home Medications Acetaminophen 500 Mg Tablet, 1,000 MG PO Q6H PRN for PAIN-MILD (1-4), (Reported) Aspirin 81 Mg Tablet.dr, 81 MG PO DAILY, (Reported) Divalproex Sodium 125 Mg Cap, 125 MG PO DAILY, (Reported) Divalproex Sodium 125 Mg Cap, 250 MG PO HS, (Reported) TAKES 2 (125MG) TABS Donepezil HCl 10 Mg Tablet, 10 MG PO HS, (Reported) Mirtazapine 15 Mg Tablet, 15 MG PO HS, (Reported) Peg 400/Hypromellose/Glycerin 15 Ml Drops, 1 DROP OU HS, (Reported) [Ab Gel] , 1 SYRINGE INJ Q6H PRN for ANXIETY, (Reported) Patient Home Medication List Home Medication List Reviewed: Yes Review of Systems Review of Systems Constitutional: other (UNABLE TO OBTAIN ANY INFORMATION FROM PT) Ears, Nose, Mouth, Throat: see HPI Past Fpkijhu-Nzlbsq-[id number] Hx Patient Social History Alcohol Use: Denies Use Recreational Drug Use: No Smoking Status: Never a Smoker 2nd Hand Smoke Exposure: No Recent Foreign Travel: No Contact w/Someone Who Travel: No Recent Infectious Disease Expo: No Recent Hopitalizations: No Immunizations Up To Date Tetanus Booster (TDap): Unknown Seasonal Allergies Seasonal Allergies: No Past Medical History Surgeries: Yes Respiratory: No Cardiac: Yes Syncope Neurological: Yes (MINIMALLY VERBAL) Dementia : No Reproductive Disorders: No WELFARE WORKER History: Menopausal Genitourinary: No Gastrointestinal: Yes Polyps Musculoskeletal: No Endocrine: No HEENT: Yes Glaucoma Cancer: No Psychosocial: No Integumentary: No Blood Disorders: No Adverse Reaction/Blood Tranf: No Family Medical History No Pertinent Family Hx Physical Exam Vital Signs Vital Signs - First Documented 06/28/20 05:30 Temp 35.9 Pulse 79 Resp 18 B/P (MAP) 128/91 (103) Pulse Ox 98 O2 Delivery Room Air Capillary Refill : Less Than 3 Seconds Height, Weight, BMI Height: 5'9.00" Weight: 121lbs. 0.0oz. [id number]; 20.00 BMI Method:Estimated General Appearance: WD/WN, no apparent distress, other (PT IS AWAKE, ALERT, BUT IS MINIMALLY VERBAL AND IS NON-SENSICAL. PT IS NOT FOLLOWING COMMANDS. ) HEENT: PERRL/EOMI (2 MM / EQUAL ), TMs normal, pharynx normal, other (NOSE SWOLLEN AND BRUISED WITH DRIED BLOOD IN RIGHT NARE) Neck: non-tender Cardiovascular: regular rate, rhythm, no murmur Respiratory: chest non-tender, normal breath sounds, no respiratory distress, no accessory muscle use Gastrointestinal: normal bowel sounds, non tender, soft Back: normal inspection, no CVA tenderness, no vertebral tenderness Extremities: non-tender, no pedal edema, normal capillary refill Neurologic/Psychiatric: alert, other (MENTATION NOTED ABOVE. PT IS ABLE TO SPONTANEOUSLY MOVE ALL EXTREMITIES. ) [place] Coma Score Best Eye Response: (4) Open Spontaneously Best Verbal Response: (3) Inappropriate Words Best Motor Response: (5) Localizes to Pain Progress/Results/Core Measures Results/Orders My Orders Orders - SOCORRO READ DO Ct Head/Face/Cervical Wo (06/28/20 ) Chest 1 View, Ap/Pa Only (06/28/20 ) Pelvis (06/28/20 ) Vital Signs/I&O 06/28/20 06/28/20 05:30 07:59 Temp 35.9 35.9 Pulse 79 79 Resp 18 18 B/P (MAP) 128/91 (103) 128/91 (103) Pulse Ox 98 98 O2 Delivery Room Air Blood Pressure Mean: 103 Progress Progress Note : Progress Note PLACED IN ISOLATION ROOM PPE WORN AT ALL TIMES, DUE TO RECENT + COVID-19 TEST UNEVENTFUL ER STAY Diagnostic Imaging Comments CT HEAD/MAXILLOFACIAL/CERVICAL SPINE--DEPRESSED NASAL BONE FRACTURES, OTHERWISE NO ACUTE PROCESS, PER [facility] VIA FAX AT 0644 CXR--NO ACUTE PROCESS, PER RADIOLOGIST REPORT AT 0639 PELVIS XRAY--NO ACUTE PROCESS, PER RADIOLOGIST REPORT AT 0639 Reviewed: Reviewed by Me Departure Impression Primary Impression: Unwitnessed fall Additional Impressions: MINOR HEAD INJURY WITH UNKNOWN LOSS OF CONSCIOUSNESS Closed fracture nasal bone Advanced dementia COVID-19 virus infection Disposition: 03 XFER SNF Condition: Stable Departure-Patient Inst. Referrals: NANCY CHATMAN MD, RACHEL L MD (PCP/Family) Primary Care Physician Patient Instructions: Preventing Falls in the Older Adult, Minor Head Injury (DC), Nose Fracture (DC) Add. Discharge Instructions: CONTINUE CURRENT MEDICATIONS PRESCRIBED FOLLOW UP WITH DR. CHATMAN FOR NASAL BONE FRACTURE FURTHER ORDERS BY PRIMARY CARE DRSanjay All discharge instructions reviewed with patient and/or family. Voiced understanding. SOCORRO READ DO Jun 28, 2020 06:48
--- NOTE | 2020-06-28 06:52 | NUR ---
[facility] called to transport pt home.
--- NOTE | 2020-06-28 07:36 | Diagnostic Imaging Report ---
EXAMINATION: CT head, face and CT cervical spine without contrast. TECHNIQUE: Multiple contiguous axial images were obtained through the face, brain and cervical spine without the use of intravenous contrast. Sagittal and coronal reformations through the cervical spine were then performed. All CT scans use one or more of the following dose optimizing techniques: automated exposure control, MA and/or KvP adjustment based on a patient size and exam type, or iterative reconstruction. HISTORY: FALL COMPARISON: CT head and C-spine 05/26/2020 FINDINGS: HEAD: Mild diffuse cerebral volume loss with proportional enlargement of the ventricles and sulci. Mild hypodensities throughout the supratentorial white matter of both cerebral hemispheres. No acute intracranial hemorrhage or abnormal extra-axial fluid collections are present. Calcification of the intracranial ICAs. No hyperdense vessel. The calvarium is intact. The mastoid air cells are clear. Mucosal thickening of the maxillary sinuses. The orbits are normal. C-SPINE: Vertebral body height and alignment are preserved. No acute fracture, dislocation, or destructive osseous process. Multilevel cervical spondylosis. Multilevel facet hypertrophy. Up to moderate central canal and neuroforaminal stenosis at multiple levels. The paraspinous soft tissues are normal. Heterogeneous appearance of the thyroid gland. The visualized lung apices are normal. FACE: Cortical irregularity of the nasal bones bilaterally which could represent nondisplaced fractures. Mandible and maxillae are normal. Zygomatic arches are normal. Pterygoid plates are normal. No soft tissue abnormality is seen. IMPRESSION: 1. No acute intracranial abnormality. 2. Multilevel disc degenerative changes of the cervical spine without acute osseous abnormality. 3. Possible nondisplaced bilateral nasal bone fractures. 4. Agree with preliminary interpretation. Dictated by: Dictated on workstation # [id number]
[2020-06-28 07:59] VITALS: BP 128/91
== END 2020-06-28 07:59 ==
LOC: EDUNIT# 05:30 → ER 05:32
DX: S02.2XXA Fracture of nasal bones, initial encounter for closed fracture (principal); S09.90XA Unspecified injury of head, initial encounter; F03.90 Unspecified dementia, unspecified severity, without behavioral disturbance, psychotic disturbance, mood disturbance, and anxiety; U07.1 COVID-19; Z79.82 Long term (current) use of aspirin; Z88.2 Allergy status to sulfonamides; W18.39XA Other fall on same level, initial encounter
CPT/HCPCS: 70450; 70486; 71045; 72125; 72170

== ENCOUNTER 2020-10-29 14:26 | Emergency (ER) | payer MEDICARE ==
[~2020-10-29] VITALS: Ht 175.2 cm; Wt 70.3 kg
--- NOTE | 2020-10-29 14:42 | ED Head Injury ---
General Chief Complaint: Trauma-Non Activation Stated Complaint: FALL/VOMITING History of Present Illness Date Seen by Provider: Oct 29, 2020 Time Seen by Provider: 14:30 Initial Comments Patient is a 80-year-old female with a history of severe dementia who presents from a local [facility] with a chief complaint of fall. Patient was reportedly riding around in her wheelchair when she leaned over to pull something up off of the floor and fell forward onto her head. Patient was assisted back to sitting position and had onset of vomiting. Caregiver is at the bedside from [facility] and states that the patient has not been ill recently. She does have a history of urinary tract infections but none recently. At baseline the patient is severely demented and not oriented to person place or time. The patient is unable to provide any review of systems past medical family or surgical history. This information is obtained from the [facility] records at the bedside. Patient is only on aspirin daily as anticoagulant. It does not appear that she has any complaints of pain to her extremities. She has an obvious abrasion on her forehead. Also a small abrasion on her nasal bridge. She is moving all 4 extremities without apparent distress. By report the patient was hypotensive with a blood pressure of 79 over 60s at EMS arrival at the [facility]. Her blood pressure is currently rebounded to 119 systolic. IV fluids are running. All other review of systems unable to be obtained secondary to the patient's dementia. Occurred: just prior to arrival Severity: mild Location: frontal Method of Injury: direct blow, fell Loss of Consciousness: no loss of consciousness Allergies and Home Medications Allergies Coded Allergies: Sulfa (Sulfonamide Antibiotics) (Verified Allergy, Unknown, RASH, 03/11/16) Home Medications Acetaminophen 500 Mg Tablet, 1,000 MG PO Q6H PRN for PAIN-MILD (1-4), (Reported) Aspirin 81 Mg Tablet.dr, 81 MG PO DAILY, (Reported) Divalproex Sodium 125 Mg Cap, 125 MG PO DAILY, (Reported) Divalproex Sodium 125 Mg Cap, 250 MG PO HS, (Reported) TAKES 2 (125MG) TABS Donepezil HCl 10 Mg Tablet, 10 MG PO HS, (Reported) Mirtazapine 15 Mg Tablet, 15 MG PO HS, (Reported) Peg 400/Hypromellose/Glycerin 15 Ml Drops, 1 DROP OU HS, (Reported) [Ab Gel] , 1 SYRINGE INJ Q6H PRN for ANXIETY, (Reported) Patient Home Medication List Home Medication List Reviewed: Yes Review of Systems Review of Systems Constitutional: see HPI UNABLE TO OBTAIN ROS SECONDARY TO PATIENT'S DEMENTIA Past Zkamqmw-Lqepxf-Wujjth Hx Patient Social History 2nd Hand Smoke Exposure: No Recent Hopitalizations: No Immunizations Up To Date Tetanus Booster (TDap): Unknown Seasonal Allergies Seasonal Allergies: No Past Medical History Surgeries: Yes Respiratory: No Cardiac: Yes Syncope Neurological: Yes (MINIMALLY VERBAL) Dementia Reproductive Disorders: No [employer] History: Menopausal Genitourinary: No Gastrointestinal: Yes Polyps Musculoskeletal: No Endocrine: No HEENT: Yes Glaucoma Cancer: No Psychosocial: No Integumentary: No Blood Disorders: No Adverse Reaction/Blood Tranf: No Family Medical History No Pertinent Family Hx Physical Exam Vital Signs Vital Signs - First Documented 10/29/20 14:30 Temp 35.8 Pulse 70 Resp 20 B/P (MAP) 127/67 (87) Pulse Ox 100 O2 Delivery Room Air Capillary Refill : Height, Weight, BMI Height: 5'9.00" Weight: 121lbs. 0.0oz. 54.599673ns; 20.00 BMI Method:Estimated General Appearance: WD/WN, no apparent distress HEENT: PERRL/EOMI (2mm and equal bilaterally) Neck: non-tender, supple Cardiovascular: regular rate, rhythm Respiratory: lungs clear, normal breath sounds, no respiratory distress, no accessory muscle use Gastrointestinal: non tender, soft Extremities: normal range of motion, non-tender, normal inspection Psychiatric: alert, disoriented x 3 Crainal Nerves: normal hearing, normal speech (rabling and nonsensical) Motor/Sensory: no motor deficit, no sensory deficit Skin: normal color, warm/dry, other (Abrasion to nasal bridge and abrasion/ contusion just to the right of midline of forehead) Audrey Coma Score Best Eye Response: (4) Open Spontaneously Best Verbal Response: (4) Confused Conversation (Patient has dementia) Best Motor Response: (5) Localizes to Pain (Patient has dementia) [place] Total: 13 Progress/Results/Core Measures Results/Orders My Orders Orders - CHEYANNE JURADO MD Ct Head/Cervical Spine Wo (10/29/20 14:42) Vital Signs/I&O 10/29/20 14:30 Temp 35.8 Pulse 70 Resp 20 B/P (MAP) 127/67 (87) Pulse Ox 100 O2 Delivery Room Air Progress Progress Note : Time: 15:49 Progress Note Patient has been resting quietly in the emergency department throughout her ER stay. No further episodes of vomiting are noted. Patient's vital signs have been stable. CT scan of the brain and cervical spine show no acute intracranial abnormalities or cervical spine fractures or dislocations. The patient has developed a right basal ganglia lacunar infarct that is chronic/old in origin. No other clinical or objective findings to warrant further studies from the emergency department at this time. Patient will be sent home to her facility with some oral Zofran. I will also send a prescription of Zofran to [facility] for them to cotton picker for her tomorrow. Good return precautions have been given. Her molding engineer at the bedside verbalizes understanding. All questions are sought and answered. Patient is stable for discharge. Diagnostic Imaging Diagonstic Imaging: CT Plain Films/CT/US/NM/MRI: c-spine, head Comments [facility], [place] NAME: NIDA FERNANDES [facility] REC#: [id number] PT STATUS: REG ER : 1940 PHYSICIAN: CHEYANNE JURADO MD ADMIT DATE: 10/29/20/ER Draft Date of Exam:10/29/20 CT HEAD/CERVICAL SPINE WO Clinical indication: Patient fell from wheelchair. Patient is vomiting. Exam: Axial Head CT without IV contrast with sagittal and coronal reformations. Axial CT scan of the cervical spine with sagittal and coronal reformations. Auto Exposure Controls were utilized during the CT exam to meet ALARA standards for radiation dose reduction. Comparison: CT scan of the head, face and cervical spine without contrast dated 06/28/2020. Findings: Head CT: There is no evidence of intracranial hemorrhage. There is interval development of an infarct involving the right basal ganglia which appears chronic. There is diffuse brain parenchymal volume loss again seen with temporal lobes involved as well. There is no evidence of acute cerebral infarct, intracranial hemorrhage, brain herniation or midline shift. 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 There is normal dennis-white matter distinction. There is no significant midline shift or herniation. There is no evidence of hydrocephalus. The basal cisterns are unremarkable. The skull, extracranial soft tissue and orbits are unremarkable. The paranasal sinuses are unremarkable. Temporal bones show no significant abnormality. CT cervical spine: There is no acute cervical spine fracture or dislocation. There is reversal of the cervical spine posture. There are hypertrophic spurs and facet arthropathy. There is severe loss of disc space height at the C4-C5, C5-C6 disc levels and moderate loss of disc space height at the C3-C4 and C6-C7 levels. There is multilevel uncinate spurs. There is severe right C4-C5 and C5-C6 neural foramen narrowing due to uncinate spurs. This was also noted on the prior CT scan. There is no significant neck soft tissue abnormality. Visualized upper lung simms are clear. Impression: 1: There is no evidence of acute intracranial process. There is no intracranial hemorrhage or skull fracture. 2: Stable cervical spine degenerative disease with no acute fracture or dislocation. 3: Interval development of a chronic lacunar infarct involving the right basal ganglia region. Dictated on workstation # [id number] Dict: 10/29/20 1521 Trans: 10/29/20 1536 [facility] [id number] Interpreted by: ANU TRUJILLO MD Electronically signed by: Departure Impression Primary Impression: Concussion Qualified Codes: S06.0X0A - Concussion without loss of consciousness, initial encounter Additional Impression: Forehead contusion Qualified Codes: S00.83XA - Contusion of other part of head, initial encounter Disposition: 01 HOME, SELF-CARE Condition: Stable Departure-Patient Inst. Decision time for Depature: 15:50 Referrals: ROSARIO DELGADO MD (PCP/Family) Primary Care Physician Patient Instructions: Concussion, Adult ED Add. Discharge Instructions: Continue routine prescribed medications. I have given her a prescription for Zofran orally disintegrating tablets. Use 1 every 6-8 hours as needed for nausea and vomiting. Return to the emergency room for reevaluation if she has persistent nausea vomiting, decrease in mental status or any other emergent concerning symptoms. Scripts Ondansetron (Ondansetron Odt) 4 Mg Tab.rapdis 4 MG PO Q8H for nausea and vomiting, #20 TAB Prov: CHEYANNE JURADO MD 10/29/20 CHEYANNE JURADO MD Oct 29, 2020 14:42
--- NOTE | 2020-10-29 15:37 | Diagnostic Imaging Report ---
Clinical indication: Patient fell from wheelchair. Patient is vomiting. Exam: Axial Head CT without IV contrast with sagittal and coronal reformations. Axial CT scan of the cervical spine with sagittal and coronal reformations. Auto Exposure Controls were utilized during the CT exam to meet ALARA standards for radiation dose reduction. Comparison: CT scan of the head, face and cervical spine without contrast dated 06/28/2020. Findings: Head CT: There is no evidence of intracranial hemorrhage. There is interval development of an infarct involving the right basal ganglia which appears chronic. There is diffuse brain parenchymal volume loss again seen with temporal lobes involved as well. There is no evidence of acute cerebral infarct, intracranial hemorrhage, brain herniation or midline shift. 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 There is normal dennis-white matter distinction. There is no significant midline shift or herniation. There is no evidence of hydrocephalus. The basal cisterns are unremarkable. The skull, extracranial soft tissue and orbits are unremarkable. The paranasal sinuses are unremarkable. Temporal bones show no significant abnormality. CT cervical spine: There is no acute cervical spine fracture or dislocation. There is reversal of the cervical spine posture. There are hypertrophic spurs and facet arthropathy. There is severe loss of disc space height at the C4-C5, C5-C6 disc levels and moderate loss of disc space height at the C3-C4 and C6-C7 levels. There is multilevel uncinate spurs. There is severe right C4-C5 and C5-C6 neural foramen narrowing due to uncinate spurs. This was also noted on the prior CT scan. There is no significant neck soft tissue abnormality. Visualized upper lung simms are clear. Impression: 1: There is no evidence of acute intracranial process. There is no intracranial hemorrhage or skull fracture. 2: Stable cervical spine degenerative disease with no acute fracture or dislocation. 3: Interval development of a chronic lacunar infarct involving the right basal ganglia region. Dictated by: Dictated on workstation # [id number]
[2020-10-29] MEDS ORDERED: RX-ONDANSETRON 4 MG ODT (ZOFRAN) PPK #4 PO STA (15:52)
[2020-10-29] MEDS ORDERED: ONDA4TAB11 PO (15:52)
[2020-10-29 17:03] VITALS: BP 131/67
== END 2020-10-29 16:14 | disposition home or self-care (01) ==
LOC: EDUNIT# 14:26 → ER 14:27
DX: S06.0X0A Concussion without loss of consciousness, initial encounter (principal); S00.83XA Contusion of other part of head, initial encounter; S00.31XA Abrasion of nose, initial encounter; F03.90 Unspecified dementia, unspecified severity, without behavioral disturbance, psychotic disturbance, mood disturbance, and anxiety; R40.2410 Glasgow coma scale score 13-15, unspecified time; Z88.2 Allergy status to sulfonamides; Z79.82 Long term (current) use of aspirin; W05.0XXA Fall from non-moving wheelchair, initial encounter
CPT/HCPCS: 70450; 72125

== ENCOUNTER → 2021-04-20 | Outpatient (CLI) | payer MEDICARE ==
[~2021-04-20] MED LIST changes: +1/2 NS IV SOLUTION 1,000 ML IV SCH; +CALC600T91 PO; -CLC600T PO; +MIRT-68 PO; -MIRT15TA6 PO; +ONDA4TAB11 PO
[2021-04-20 09:34] VITALS: BP 119/106
== END ==
LOC: SDC 09:13
PROVIDERS: ATTEND Nurse Practitioner
DX: E87.0 Hyperosmolality and hypernatremia (principal)
CPT/HCPCS: 96360

== ENCOUNTER 2021-04-27 11:16 | Outpatient (CLI) | payer MEDICARE ==
[~2021-04-27] VITALS: Wt 70.3 kg
[~2021-04-27 11:16] MED LIST changes: -1/2 NS IV SOLUTION 1,000 ML IV SCH
[2021-04-27] MEDS ORDERED: 1/2 NS IV SOLUTION 1,000 ML IV ONE (12:00)
[2021-04-27 12:10] VITALS: BP 83/60
== END 2021-04-27 13:31 | disposition home or self-care (01) ==
LOC: SDC 11:16
PROVIDERS: ATTEND Nurse Practitioner
DX: E86.0 Dehydration (principal)
CPT/HCPCS: 96360